=== PATIENT | male | born 1985 | race Caucasian/White ===

== ENCOUNTER 2016-09-19 17:55 | Emergency (ER) | payer OTHER ==
[~2016-09-19] VITALS: Ht 162.6 cm; Wt 96.8 kg
[~2016-09-19 17:55] MED LIST: ACETAMINOP160 MG/51 GT; ALBUTEROL0.63 MG/3 IH; ALL DAY ALL1 MG/1 ML PO; ALLERGY REL1 MG/1 M1 GT; AMOX TR-K400 MG/5 M GT; AUGMENTIN875 MG PO; CALCIUM CA1250 MG/5 GT; CALCIUM CARB GT; CALCIUM500 M3 GT; CATAPRES-TTS 10.1 MG PO; CATAPRES-TTS 11 EACH TD; CENTAMIN240 ML GT; CHILD IBUP100 MG/5 M G-TUBE; CHILDREN'S160 MG/23 GT; CILOSTAZOL100 MG GT; CILOSTAZOL50 MG GT; CIMETIDINE300 MG/5 M GT; CLEOCIN300 MG GT; CLONIDINE1 EACH TD; DIASTAT ACUDIAL10 MG PR; DIAZEPAM2 MG GT; DIAZEPAM2 MG PO; DIAZEPAM5 MG GT; DIAZEPAM5 MG/1 M2 GT; DIAZEPAM5 MG/5 ML GT; DIPHENHIST12.5 MG/5 GT; DULCOLAX10 MG PR; EAR WAX DROPS15 ML BOTH EARS; FAMOTIDINE40 MG/5 ML PO; IBUPROFEN100 MG/5 M GT; IBUPROFEN100 MG/5 M PO; Imodium GT; JEVITY PO; JEVITY1000 M1 PO; KEPPRA100 MG/1 M PO; KETOCONAZOLE60 GM TP; LEVAQUIN750 MG PO; LEVETIRACE100 MG/1 M GT; LEVOFLOXACIN750 MG GT; LISINOPRIL2.5 MG GT; LISINOPRIL5 MG GT; LOPERAMIDE1 MG/5 ML GT; MILK OF MAGN GT; MILK OF MAGNESI10 ML GT; MULTI-DELYN473 M1 GT; MUPIROCIN15 GM TP; NIZATIDINE150 MG/10 GT; NYSTATIN15 GM TP; OXCARBAZEP300 MG/5 M GT; OXCARBAZEP300 MG/5 M PO; PREDNISONE10 MG GT; PROMETHEGAN25 MG PR; PROVENTIL,2.5 MG/3 M IH; Q-TUSSIN GT; RANITIDINE HCL150 MG GT; RANITIDINE15 MG/1 ML GT; ROBITUSSIN100 MG/5 M GT; SENEXON8.8 MG/5 M GT; SILAPAP GT; SODIUM CHLORIDE1 G1 GT; SODIUM CHLORIDE1 GM GT; SODIUM CHLORIDE4 ML IH; TRILEPTAL300 MG/5 M GT; ZESTRIL,PRINIV2.5 MG GT; ZESTRIL5 MG GT
[2016-09-19 20:15] VITALS: BP 114/67
== END 2016-09-19 20:35 | disposition home or self-care (01) ==
LOC: EME 17:55
PROC: 0D20XUZ Change Feeding Device in Upper Intestinal Tract, External Approach (ICD-10-PCS; principal; 2016-09-19)
DX: Z43.1 Encounter for attention to gastrostomy (principal); I10 Essential (primary) hypertension; F79 Unspecified intellectual disabilities; G82.50 Quadriplegia, unspecified; K21.9 Gastro-esophageal reflux disease without esophagitis; R56.9 Unspecified convulsions; I73.00 Raynaud's syndrome without gangrene
CPT/HCPCS: 74000; 99281; 99284

== ENCOUNTER 2016-10-10 09:07 | Inpatient (IN) | payer OTHER ==
[~2016-10-10] VITALS: Ht 149.9 cm; Wt 54.3 kg
[2016-10-10 10:21] LABS: HEMATOCRIT 35.2 % (38.0-50.0); MCH 31.9 PG (29.0-34.0); MCHC 35.2 G/DL (30.0-36.0); MCV 90.5 FL (86-99); MEAN PLAT.VOLUME 9.5 uM^3 (9.0-12.4); PLATELET COUNT 130 K/uL (156-360); RBC DIS.WIDTH-CV 13.7 % (11.8-14.6); RBC DIS.WIDTH-SD 45.2 % (39-53); RED BLOOD COUNT 3.89 M/uL (4.00-5.50); WHITE BLOOD COUNT 6.5 K/uL (4.1-10.2)
[2016-10-10 10:32] LABS: CHLORIDE 97 mEq/L (99-109); POTASSIUM 4.1 mEq/L (3.7-5.4); SODIUM 129 mEq/L (136-147)
[2016-10-10 10:34] LABS: GLUCOSE 93 mg/dL (70-99)
[2016-10-10 10:35] LABS: ANION GAP 9 MEQ/L (2-14)
[2016-10-10 10:38] LABS: GFR ESTIMATE (CALCULATED) > 59 mL/min/
[2016-10-10 10:39] LABS: UREA NITROGEN (BUN) 6 mg/dL (9-23)
[2016-10-10] MEDS ORDERED: CERTA VITE9 MG/15 ML GT (13:31)
[2016-10-10] MEDS ORDERED: CRANBERRY250 MG GT (13:35)
[2016-10-10] MEDS ORDERED: RANITIDINE HCL150 MG GT (13:36)
[2016-10-10 15:36] VITALS: BP 127/86
[2016-10-10 17:30] VITALS: BP 110/68
[2016-10-10 19:29] VITALS: BP 104/58
[2016-10-10 23:51] VITALS: BP 108/55
[2016-10-11 04:00] VITALS: BP 102/53
[2016-10-11 06:38] LABS: POINT-OF-CARE METER ID UU14188625
[2016-10-11 08:01] VITALS: BP 126/62
[2016-10-11 08:02] LABS: HEMATOCRIT 31.9 % (38.0-50.0); MCH 32.5 PG (29.0-34.0); MCHC 34.8 G/DL (30.0-36.0); MCV 93.3 FL (86-99); MEAN PLAT.VOLUME 10.6 uM^3 (9.0-12.4); PLATELET COUNT 143 K/uL (156-360); RBC DIS.WIDTH-CV 14.3 % (11.8-14.6); RBC DIS.WIDTH-SD 47.8 % (39-53); RED BLOOD COUNT 3.42 M/uL (4.00-5.50)
[2016-10-11 08:35] LABS: ANION GAP 6 MEQ/L (2-14); CHLORIDE 100 MEQ/L (99-109); GFR ESTIMATE (CALCULATED) > 59 mL/min/; GLUCOSE 78 mg/dL (70-99); SAMPLE HEMOLYSIS CHECK 0; SAMPLE ICTERIC CHECK 0; SAMPLE LIPEMIA CHECK 0; SODIUM 132 MEQ/L (136-147); UREA NITROGEN (BUN) 4 mg/dL (9-23)
[2016-10-11 12:34] VITALS: BP 138/62
[2016-10-11 15:40] VITALS: BP 115/62
[2016-10-11 19:43] VITALS: BP 121/68
[2016-10-12] VITALS (7 sets, daily range): BP systolic 119–143; BP diastolic 64–71
[2016-10-12 00:42] LABS: POINT-OF-CARE METER ID UU14188625
[2016-10-12 10:20] LABS: ANION GAP 8 MEQ/L (2-14); CHLORIDE 103 MEQ/L (99-109); GFR ESTIMATE (CALCULATED) > 59 mL/min/; GLUCOSE 85 mg/dL (70-99); POTASSIUM 4.1 MEQ/L (3.7-5.4); SAMPLE HEMOLYSIS CHECK 0; SAMPLE ICTERIC CHECK 0; SAMPLE LIPEMIA CHECK 0; SODIUM 134 MEQ/L (136-147); UREA NITROGEN (BUN) 5 mg/dL (9-23)
[2016-10-12 23:43] LABS: POINT-OF-CARE METER ID UU14174225
[2016-10-13] VITALS (7 sets, daily range): BP systolic 96–158; BP diastolic 55–82
[2016-10-13 07:00] LABS: POINT-OF-CARE METER ID UU14188625
[2016-10-13 10:10] LABS: HEMATOCRIT 32.6 % (38.0-50.0); MCH 32.8 PG (29.0-34.0); MCV 93.7 FL (86-99); MEAN PLAT.VOLUME 9.6 uM^3 (9.0-12.4); PLATELET COUNT 139 K/uL (156-360); RBC DIS.WIDTH-CV 14.3 % (11.8-14.6); RBC DIS.WIDTH-SD 48.7 % (39-53); RED BLOOD COUNT 3.48 M/uL (4.00-5.50)
[2016-10-13 10:41] LABS: ANION GAP 7 MEQ/L (2-14); CHLORIDE 104 MEQ/L (99-109); GFR ESTIMATE (CALCULATED) > 59 mL/min/; GLUCOSE 114 mg/dL (70-99); POTASSIUM 3.7 MEQ/L (3.7-5.4); SAMPLE HEMOLYSIS CHECK 0; SAMPLE ICTERIC CHECK 0; SAMPLE LIPEMIA CHECK 0; SODIUM 136 MEQ/L (136-147); UREA NITROGEN (BUN) 5 mg/dL (9-23)
[2016-10-13 12:12] LABS: POINT-OF-CARE METER ID UU14174225
[2016-10-14 00:57] LABS: POINT-OF-CARE METER ID UU14188625
[2016-10-14 03:36] VITALS: BP 106/56
[2016-10-14 08:13] VITALS: BP 118/57
[2016-10-14 11:50] VITALS: BP 96/46
[2016-10-14] MEDS ORDERED: AUGMENTIN600 MG/5 M PO (14:00)
[2016-10-14 16:13] VITALS: BP 121/68
[2016-10-14 18:01] LABS: POINT-OF-CARE METER ID UU14174225
[2016-10-14 19:52] VITALS: BP 109/71
[2016-10-15] VITALS: BP 129/61
[2016-10-15 04:00] VITALS: BP 109/54
[2016-10-15 12:30] VITALS: BP 110/60
[2016-10-15 16:00] VITALS: BP 87/49
[2016-10-15 16:24] VITALS: BP 94/50
[2016-10-15 18:06] LABS: POINT-OF-CARE METER ID UU14188625
[2016-10-15 20:00] VITALS: BP 136/65
[2016-10-16] VITALS (8 sets, daily range): BP systolic 116–145; BP diastolic 60–84
[2016-10-16 03:15] LABS: POINT-OF-CARE METER ID UU14174225
[2016-10-16 05:43] LABS: POINT-OF-CARE METER ID UU14174225
[2016-10-16 16:21] LABS: POINT-OF-CARE METER ID UU14174225
[2016-10-17 03:43] VITALS: BP 170/90
[2016-10-17 06:28] LABS: POINT-OF-CARE METER ID UU14188625
[2016-10-17 09:21] VITALS: BP 163/84
[2016-10-17 14:09] VITALS: BP 144/76
[2016-10-17 16:01] VITALS: BP 165/79
== END 2016-10-17 19:42 | disposition home or self-care (01) | DRG 177 ==
LOC: EME 09:07 → 5SOUTH 12:17 → EDOF 12:17 → 5SOUTH 15:22
PROVIDERS: Emergency Medicine; Internal Medicine; Nurse Practitioner Adult Health
PROC: 0DHA3UZ Insertion of Feeding Device into Jejunum, Percutaneous Approach (ICD-10-PCS; principal; 2016-10-15)
DX: J69.0 Pneumonitis due to inhalation of food and vomit (principal); G82.50 Quadriplegia, unspecified; F72 Severe intellectual disabilities; G40.909 Epilepsy, unspecified, not intractable, without status epilepticus; Z68.1 Body mass index [BMI] 19.9 or less, adult; I67.5 Moyamoya disease; R13.10 Dysphagia, unspecified; Z93.1 Gastrostomy status; D69.6 Thrombocytopenia, unspecified; E87.1 Hypo-osmolality and hyponatremia; Z66 Do not resuscitate; T85.598A Other mechanical complication of other gastrointestinal prosthetic devices, implants and grafts, initial encounter; M24.50 Contracture, unspecified joint; Z93.4 Other artificial openings of gastrointestinal tract status; J98.11 Atelectasis; F79 Unspecified intellectual disabilities
CPT/HCPCS: 71010; 71020; 71250; 80048; 80202; 82948; 85027; 87040; 87070; 87205; 94640; 94640 76; 94799; 99202; 99281; 99285; C1769; J1650; J1953; J2543; J3370; J7030; J7042; J7050

== ENCOUNTER → 2016-10-24 | Outpatient (CLI) | payer OTHER ==
[~2016-10-24] MED LIST changes: +AUGMENTIN600 MG/5 M PO; +CERTA VITE9 MG/15 ML GT; +CRANBERRY250 MG GT
== END | disposition home or self-care (01) ==
LOC: RAD 13:29 → EDSTATUS 14:30 → RAD 14:30
PROC: 0DH87UZ Insertion of Feeding Device into Small Intestine, Via Natural or Artificial Opening (ICD-10-PCS; principal; 2016-10-24)
DX: K94.20 Gastrostomy complication, unspecified (principal); Z88.1 Allergy status to other antibiotic agents
CPT/HCPCS: C1766; C1769

== ENCOUNTER 2016-10-28 13:25 | Emergency (ER) | payer OTHER ==
[~2016-10-28] VITALS: Ht 162.6 cm; Wt 43.1 kg
[2016-10-28 17:00] VITALS: BP 90/61
== END 2016-10-28 17:01 | disposition home or self-care (01) ==
LOC: EME 13:25
DX: Z43.4 Encounter for attention to other artificial openings of digestive tract (principal); I10 Essential (primary) hypertension; K21.9 Gastro-esophageal reflux disease without esophagitis; R56.9 Unspecified convulsions; I67.5 Moyamoya disease; G82.50 Quadriplegia, unspecified; M41.9 Scoliosis, unspecified
CPT/HCPCS: 99281; 99284

== ENCOUNTER 2016-12-09 06:28 | Inpatient (IN) | payer OTHER ==
[~2016-12-09] VITALS: Ht 157.5 cm; Wt 47.6 kg
[2016-12-09 07:29] LABS: EOSINOPHIL (%) 0.3 % (0-5); HEMATOCRIT 39.7 % (38.0-50.0); IMMATURE GRANULOCYTE (%) 0.3 % (0.0-0.7); INSTRUMENT ABS NEUTROPHIL CT 10.7 K/uL; LYMPHOCYTE COUNT 0.3 K/uL (1.0-2.8); MCH 32.1 PG (29.0-34.0); MCHC 35.8 G/DL (30.0-36.0); MCV 89.8 FL (86-99); MEAN PLAT.VOLUME 9.9 uM^3 (9.0-12.4); MONOCYTE (%) 6.2 % (3-12); MONOCYTE COUNT 0.7 K/uL (0-0.8); NEUTROPHIL COUNT 10.7 K/uL (1.8-6.4); PLATELET COUNT 156 K/uL (156-360); RBC DIS.WIDTH-CV 13.2 % (11.8-14.6); RBC DIS.WIDTH-SD 43.5 % (39-53); RED BLOOD COUNT 4.42 M/uL (4.00-5.50); WHITE BLOOD COUNT 11.9 K/uL (4.1-10.2)
[2016-12-09 07:52] LABS: CHLORIDE 97 mEq/L (99-109); POTASSIUM 4.6 mEq/L (3.7-5.4); SODIUM 129 mEq/L (136-147)
[2016-12-09 07:54] LABS: GLUCOSE 94 mg/dL (70-99)
[2016-12-09 07:55] LABS: ANION GAP 10 MEQ/L (2-14)
[2016-12-09 07:58] LABS: GFR ESTIMATE (CALCULATED) > 59 mL/min/
[2016-12-09 07:59] LABS: UREA NITROGEN (BUN) 6 mg/dL (9-23)
[2016-12-09] MEDS ORDERED: NYAMYC60 GM TP (12:36)
[2016-12-09 15:16] VITALS: BP 94/52
[2016-12-09 23:32] VITALS: BP 91/49
[2016-12-10 06:19] LABS: EOSINOPHIL (%) 1.1 % (0-5); EOSINOPHIL COUNT 0.1 K/uL (0-0.3); HEMATOCRIT 32.2 % (38.0-50.0); IMMATURE GRANULOCYTE (%) 0.3 % (0.0-0.7); INSTRUMENT ABS NEUTROPHIL CT 4.6 K/uL; LYMPHOCYTE COUNT 1.1 K/uL (1.0-2.8); MCH 31.5 PG (29.0-34.0); MCHC 34.2 G/DL (30.0-36.0); MCV 92.3 FL (86-99); MEAN PLAT.VOLUME 10.5 uM^3 (9.0-12.4); MONOCYTE (%) 7.5 % (3-12); MONOCYTE COUNT 0.5 K/uL (0-0.8); NEUTROPHIL COUNT 4.6 K/uL (1.8-6.4); PLATELET COUNT 147 K/uL (156-360); RBC DIS.WIDTH-CV 13.8 % (11.8-14.6); RBC DIS.WIDTH-SD 45.9 % (39-53); WHITE BLOOD COUNT 6.3 K/uL (4.1-10.2)
[2016-12-10 06:24] LABS: ANION GAP 7 MEQ/L (2-14); CHLORIDE 102 MEQ/L (99-109); GFR ESTIMATE (CALCULATED) > 59 mL/min/; GLUCOSE 83 mg/dL (70-99); POTASSIUM 4.1 MEQ/L (3.7-5.4); SAMPLE HEMOLYSIS CHECK 0; SAMPLE ICTERIC CHECK 0; SAMPLE LIPEMIA CHECK 0; SODIUM 132 MEQ/L (136-147); UREA NITROGEN (BUN) 4 mg/dL (9-23)
[2016-12-10 06:27] LABS: RED BLOOD COUNT 3.49 M/uL (4.00-5.50)
[2016-12-10 07:48] VITALS: BP 116/58
[2016-12-10 08:11] LABS: INTERNAL CONTROL VALID? YES
[2016-12-10 11:23] LABS: METH RESISTANT S AUREUS PCR POSITIVE (NEGATIVE)
[2016-12-10 11:24] LABS: PROBE CHECK PASS
[2016-12-10 15:04] VITALS: BP 118/77
[2016-12-10 23:29] VITALS: BP 100/51
[2016-12-11 06:20] LABS: HEMATOCRIT 32.3 % (38.0-50.0); MCH 32.9 PG (29.0-34.0); MCHC 35.3 G/DL (30.0-36.0); MCV 93.4 FL (86-99); MEAN PLAT.VOLUME 10.3 uM^3 (9.0-12.4); PLATELET COUNT 157 K/uL (156-360); RBC DIS.WIDTH-CV 13.9 % (11.8-14.6); RBC DIS.WIDTH-SD 46.9 % (39-53); RED BLOOD COUNT 3.46 M/uL (4.00-5.50); WHITE BLOOD COUNT 6.1 K/uL (4.1-10.2)
[2016-12-11 06:36] LABS: ANION GAP 10 MEQ/L (2-14); CHLORIDE 106 MEQ/L (99-109); GFR ESTIMATE (CALCULATED) > 59 mL/min/; GLUCOSE 66 mg/dL (70-99); POTASSIUM 3.8 MEQ/L (3.7-5.4); SAMPLE HEMOLYSIS CHECK 0; SAMPLE ICTERIC CHECK 0; SAMPLE LIPEMIA CHECK 0; SODIUM 138 MEQ/L (136-147); UREA NITROGEN (BUN) 6 mg/dL (9-23)
[2016-12-11 08:03] VITALS: BP 136/70
[2016-12-11 15:51] VITALS: BP 134/68
[2016-12-11 23:13] VITALS: BP 133/71
[2016-12-12 07:16] LABS: ANION GAP 7 MEQ/L (2-14); CHLORIDE 106 MEQ/L (99-109); GFR ESTIMATE (CALCULATED) > 59 mL/min/; POTASSIUM 4.2 MEQ/L (3.7-5.4); SAMPLE HEMOLYSIS CHECK 0; SAMPLE ICTERIC CHECK 0; SAMPLE LIPEMIA CHECK 0; SODIUM 139 MEQ/L (136-147); UREA NITROGEN (BUN) 6 mg/dL (9-23)
[2016-12-12 07:17] LABS: GLUCOSE 89 mg/dL (70-99)
[2016-12-12 07:44] LABS: MCH 31.8 PG (29.0-34.0); MCHC 33.8 G/DL (30.0-36.0); MCV 93.9 FL (86-99); MEAN PLAT.VOLUME 10.3 uM^3 (9.0-12.4); PLATELET COUNT 155 K/uL (156-360); RBC DIS.WIDTH-CV 13.6 % (11.8-14.6); RBC DIS.WIDTH-SD 46.3 % (39-53); RED BLOOD COUNT 3.62 M/uL (4.00-5.50); WHITE BLOOD COUNT 4.6 K/uL (4.1-10.2)
[2016-12-12 08:30] VITALS: BP 110/64
[2016-12-12 15:14] VITALS: BP 108/66
[2016-12-12 23:26] VITALS: BP 116/71
[2016-12-13 08:27] VITALS: BP 122/70
[2016-12-13 23:40] VITALS: BP 132/77
[2016-12-14 06:36] LABS: ANION GAP 8 MEQ/L (2-14); CHLORIDE 105 MEQ/L (99-109); GFR ESTIMATE (CALCULATED) > 59 mL/min/; GLUCOSE 91 mg/dL (70-99); POTASSIUM 4.1 MEQ/L (3.7-5.4); SAMPLE HEMOLYSIS CHECK 0; SAMPLE ICTERIC CHECK 0; SAMPLE LIPEMIA CHECK 0; SODIUM 141 MEQ/L (136-147); UREA NITROGEN (BUN) 5 mg/dL (9-23)
[2016-12-14 15:23] VITALS: BP 134/72
[2016-12-14 20:58] LABS: POINT-OF-CARE METER ID UU13113717
[2016-12-15 00:32] VITALS: BP 126/63
[2016-12-15 02:53] LABS: POINT-OF-CARE METER ID UU14188625
[2016-12-15 08:04] VITALS: BP 121/66
[2016-12-15 12:28] LABS: POINT-OF-CARE METER ID UU14174225
[2016-12-15 15:34] VITALS: BP 113/70
[2016-12-15 17:04] LABS: POINT-OF-CARE METER ID UU14174225
[2016-12-15 23:37] VITALS: BP 147/83
[2016-12-16 04:04] LABS: POINT-OF-CARE METER ID UU13113717
[2016-12-16 06:17] LABS: ANION GAP 8 MEQ/L (2-14); CHLORIDE 105 MEQ/L (99-109); GFR ESTIMATE (CALCULATED) > 59 mL/min/; GLUCOSE 92 mg/dL (70-99); POTASSIUM 3.9 MEQ/L (3.7-5.4); SAMPLE HEMOLYSIS CHECK 0; SAMPLE ICTERIC CHECK 0; SAMPLE LIPEMIA CHECK 0; SODIUM 139 MEQ/L (136-147); UREA NITROGEN (BUN) 5 mg/dL (9-23)
[2016-12-16 06:31] LABS: EOSINOPHIL (%) 5.4 % (0-5); EOSINOPHIL COUNT 0.2 K/uL (0-0.3); HEMATOCRIT 37.2 % (38.0-50.0); IMMATURE GRANULOCYTE (%) 0.3 % (0.0-0.7); INSTRUMENT ABS NEUTROPHIL CT 1.2 K/uL; LYMPHOCYTE COUNT 1.4 K/uL (1.0-2.8); MCH 31.6 PG (29.0-34.0); MCHC 33.6 G/DL (30.0-36.0); MCV 93.9 FL (86-99); MEAN PLAT.VOLUME 10.1 uM^3 (9.0-12.4); MONOCYTE (%) 15.2 % (3-12); MONOCYTE COUNT 0.5 K/uL (0-0.8); NEUTROPHIL COUNT 1.2 K/uL (1.8-6.4); RBC DIS.WIDTH-CV 12.9 % (11.8-14.6); RED BLOOD COUNT 3.96 M/uL (4.00-5.50); WHITE BLOOD COUNT 3.4 K/uL (4.1-10.2)
[2016-12-16 06:36] LABS: PLATELET COUNT 220 K/uL (156-360)
[2016-12-16 12:27] VITALS: BP 136/72
[2016-12-16 15:52] VITALS: BP 132/77
[2016-12-17 00:11] VITALS: BP 128/70
[2016-12-17 07:26] VITALS: BP 122/64
[2016-12-17] MEDS ORDERED: LEVETIRACE100 MG/1 M GT (10:24)
[2016-12-17] MEDS ORDERED: CLOTRIM ANTIFUN15 GM TP (10:49)
[2016-12-17 15:55] VITALS: BP 104/70
== END 2016-12-17 17:29 | disposition home or self-care (01) | DRG 177 ==
LOC: EME 06:28 → EDOF 11:19 → 5SOUTH 11:19 → ENRESERV 11:20 → CANRESERV 11:20 → ENRESERV 11:21 → 5SOUTH 15:10
PROVIDERS: Emergency Medicine; Internal Medicine; Nurse Practitioner Adult Health
PROC: 0D2DXUZ Change Feeding Device in Lower Intestinal Tract, External Approach (ICD-10-PCS; principal; 2016-12-16)
DX: J69.0 Pneumonitis due to inhalation of food and vomit (principal); F79 Unspecified intellectual disabilities; I67.5 Moyamoya disease; M41.9 Scoliosis, unspecified; E87.1 Hypo-osmolality and hyponatremia; K21.9 Gastro-esophageal reflux disease without esophagitis; K94.23 Gastrostomy malfunction; R13.10 Dysphagia, unspecified; G40.909 Epilepsy, unspecified, not intractable, without status epilepticus; G82.50 Quadriplegia, unspecified; Z66 Do not resuscitate; Y83.3 Surgical operation with formation of external stoma as the cause of abnormal reaction of the patient, or of later complication, without mention of misadventure at the time of the procedure; D64.9 Anemia, unspecified; I73.00 Raynaud's syndrome without gangrene; R09.02 Hypoxemia
CPT/HCPCS: 71010; 71275; 74000; 80048; 80202; 82948; 83605; 85025; 85027; 87040; 87070; 87075; 87076; 87106; 87205; 87449; 87641; 94640; 94640 76; 94760; 94799; 99202; 99281; 99285; C1769; J1650; J1953; J1956; J2543; J3370; J7030; J7042; J7050; S0028

== ENCOUNTER 2016-12-30 10:40 | Emergency (ER) | payer OTHER ==
[~2016-12-30] VITALS: Ht 154.9 cm; Wt 38.5 kg
[~2016-12-30 10:40] MED LIST changes: +CLOTRIM ANTIFUN15 GM TP; +NYAMYC60 GM TP
[2016-12-30 14:33] VITALS: BP 132/77
== END 2016-12-30 14:33 | disposition home or self-care (01) ==
LOC: EME 10:40
DX: K94.23 Gastrostomy malfunction (principal); Y83.3 Surgical operation with formation of external stoma as the cause of abnormal reaction of the patient, or of later complication, without mention of misadventure at the time of the procedure; F79 Unspecified intellectual disabilities; G82.50 Quadriplegia, unspecified; G40.909 Epilepsy, unspecified, not intractable, without status epilepticus; I73.00 Raynaud's syndrome without gangrene; I67.5 Moyamoya disease
CPT/HCPCS: 99281; 99284

== ENCOUNTER 2017-01-23 10:48 | Inpatient (IN) | payer OTHER ==
[~2017-01-23] VITALS: Ht 147.3 cm; Wt 46.0 kg
[2017-01-23 12:35] LABS: ADD MIUA? YES; BILIRUBIN NEGATIVE; BLOOD MODERATE; COLOR YELLOW ((YELLOW)); GLUCOSE (STRIP) NEGATIVE; KETONES NEGATIVE; LEUKOCYTES LARGE; NITRITE POSITIVE; PROTEIN (STRIP) NEGATIVE; SPECIFIC GRAVITY 1.015 (1.000-1.030); UROBILINOGEN 0.2 MG/DL (0.2-1.0)
[2017-01-23 12:54] LABS: BACTERIA 3+ /HPF; CASTS NONE SEEN /LPF; CRYSTALS NONE SEEN; EPITHELIAL CELLS RARE /HPF; MUCUS NONE SEEN /LPF; UCUL ADDED? YES; WHITE BLOOD CELLS TNTC /HPF (0-5)
[2017-01-23 13:16] LABS: EOSINOPHIL (%) 0 % (0-5); IMMATURE GRANULOCYTE (%) 0.4 % (0.0-0.7); INSTRUMENT ABS NEUTROPHIL CT 9.1 K/uL; LYMPHOCYTE COUNT 0.8 K/uL (1.0-2.8); MCH 31.6 PG (29.0-34.0); MCHC 35.6 G/DL (30.0-36.0); MCV 88.6 FL (86-99); MEAN PLAT.VOLUME 9.3 uM^3 (9.0-12.4); MONOCYTE (%) 9.6 % (3-12); MONOCYTE COUNT 1.1 K/uL (0-0.8); NEUTROPHIL (%) 82.7 % (45-76); NEUTROPHIL COUNT 9.1 K/uL (1.8-6.4); PLATELET COUNT 158 K/uL (156-360); RBC DIS.WIDTH-CV 13.2 % (11.8-14.6); RBC DIS.WIDTH-SD 43.3 % (39-53); RED BLOOD COUNT 3.61 M/uL (4.00-5.50)
[2017-01-23 13:25] LABS: CHLORIDE 91 mEq/L (99-109); SODIUM 121 mEq/L (136-147)
[2017-01-23 13:27] LABS: GLUCOSE 95 mg/dL (70-99)
[2017-01-23 13:29] LABS: ANION GAP 8 MEQ/L (2-14); TOTAL BILIRUBIN 0.6 mg/dL (0.0-1.0)
[2017-01-23 13:31] LABS: ALKALINE PHOSPHATASE 192 IU/L (3-129); GFR ESTIMATE (CALCULATED) > 59 mL/min/
[2017-01-23 13:32] LABS: UREA NITROGEN (BUN) 5 mg/dL (9-23)
[2017-01-23 13:37] LABS: TROP-I INTERPRETATION NEGATIVE; TROPONIN-I 0.03 ng/mL (0.0-0.30)
[2017-01-23] MEDS ORDERED: KEPPRA100 MG/1 M GT (13:56)
[2017-01-23 19:16] VITALS: BP 131/62
[2017-01-23 23:45] VITALS: BP 122/58
[2017-01-24 03:37] VITALS: BP 126/61
[2017-01-24 07:15] LABS: ANION GAP 8 MEQ/L (2-14); CHLORIDE 101 MEQ/L (99-109); GFR ESTIMATE (CALCULATED) > 59 mL/min/; GLUCOSE 122 mg/dL (70-99); POTASSIUM 3.9 MEQ/L (3.7-5.4); SAMPLE HEMOLYSIS CHECK 0; SAMPLE ICTERIC CHECK 0; SAMPLE LIPEMIA CHECK 0; UREA NITROGEN (BUN) 8 mg/dL (9-23)
[2017-01-24 07:19] LABS: SODIUM 131 MEQ/L (136-147)
[2017-01-24 08:31] LABS: HEMATOCRIT 32.2 % (38.0-50.0); MCH 31.3 PG (29.0-34.0); MCHC 33.9 G/DL (30.0-36.0); MCV 92.5 FL (86-99); MEAN PLAT.VOLUME 9.9 uM^3 (9.0-12.4); PLATELET COUNT 147 K/uL (156-360); RBC DIS.WIDTH-CV 14.3 % (11.8-14.6); RBC DIS.WIDTH-SD 48.4 % (39-53); RED BLOOD COUNT 3.48 M/uL (4.00-5.50); WHITE BLOOD COUNT 12.3 K/uL (4.1-10.2)
[2017-01-24 08:47] VITALS: BP 132/70
[2017-01-24 11:26] VITALS: BP 149/64
[2017-01-24 16:19] VITALS: BP 140/79
[2017-01-24 19:22] VITALS: BP 133/62
[2017-01-24 23:57] VITALS: BP 119/56
[2017-01-25 05:05] LABS: HEMATOCRIT 31.5 % (38.0-50.0); MCH 31.4 PG (29.0-34.0); MCV 92.4 FL (86-99); RBC DIS.WIDTH-CV 13.9 % (11.8-14.6); RBC DIS.WIDTH-SD 47.4 % (39-53); RED BLOOD COUNT 3.41 M/uL (4.00-5.50); WHITE BLOOD COUNT 3.3 K/uL (4.1-10.2)
[2017-01-25 05:08] LABS: POTASSIUM 3.7 mEq/L (3.7-5.4); SODIUM 132 mEq/L (136-147)
[2017-01-25 05:10] LABS: GLUCOSE 153 mg/dL (70-99)
[2017-01-25 05:11] LABS: ANION GAP 8 MEQ/L (2-14)
[2017-01-25 05:14] LABS: GFR ESTIMATE (CALCULATED) > 59 mL/min/
[2017-01-25 05:15] LABS: UREA NITROGEN (BUN) 8 mg/dL (9-23)
[2017-01-25 05:19] LABS: CHLORIDE 102 mEq/L (99-109)
[2017-01-25 06:04] LABS: MEAN PLAT.VOLUME 9.4 uM^3 (9.0-12.4); PLAT.SUFFICIENCY DECREASED; PLATELET COUNT 92 K/uL (156-360)
[2017-01-25 11:33] VITALS: BP 124/76
[2017-01-25 16:08] VITALS: BP 122/63
[2017-01-25 19:52] VITALS: BP 108/53
[2017-01-26 00:47] VITALS: BP 109/53
[2017-01-26 03:40] VITALS: BP 126/58
[2017-01-26 06:49] VITALS: BP 161/59
[2017-01-26 07:07] LABS: ANION GAP 9 MEQ/L (2-14); CHLORIDE 99 MEQ/L (99-109); POTASSIUM 3.9 MEQ/L (3.7-5.4); SAMPLE HEMOLYSIS CHECK 0; SAMPLE ICTERIC CHECK 0; SAMPLE LIPEMIA CHECK 0; SODIUM 132 MEQ/L (136-147)
[2017-01-26 07:12] LABS: GFR ESTIMATE (CALCULATED) > 59 mL/min/; GLUCOSE 130 mg/dL (70-99); UREA NITROGEN (BUN) 11 mg/dL (9-23)
[2017-01-26 07:13] LABS: HEMATOCRIT 31.1 % (38.0-50.0); MCH 31.2 PG (29.0-34.0); MCHC 34.4 G/DL (30.0-36.0); MCV 90.7 FL (86-99); MEAN PLAT.VOLUME 10.1 uM^3 (9.0-12.4); PLATELET COUNT 105 K/uL (156-360); RBC DIS.WIDTH-SD 46.5 % (39-53); RED BLOOD COUNT 3.43 M/uL (4.00-5.50)
[2017-01-26 07:14] LABS: WHITE BLOOD COUNT 1.2 K/uL (4.1-10.2)
[2017-01-26 08:51] VITALS: BP 125/56
[2017-01-26 16:06] VITALS: BP 125/54
[2017-01-26 21:08] VITALS: BP 117/59
[2017-01-27] VITALS (7 sets, daily range): BP systolic 107–135; BP diastolic 54–85
[2017-01-27 06:08] LABS: HEMATOCRIT 31.7 % (38.0-50.0); MCH 31.2 PG (29.0-34.0); MCHC 33.8 G/DL (30.0-36.0); MCV 92.4 FL (86-99); MEAN PLAT.VOLUME 9.5 uM^3 (9.0-12.4); PLATELET COUNT 114 K/uL (156-360); RBC DIS.WIDTH-CV 14.1 % (11.8-14.6); RBC DIS.WIDTH-SD 48.2 % (39-53); RED BLOOD COUNT 3.43 M/uL (4.00-5.50); WHITE BLOOD COUNT 2.7 K/uL (4.1-10.2)
[2017-01-27 06:32] LABS: ANION GAP 10 MEQ/L (2-14); CHLORIDE 101 MEQ/L (99-109); GFR ESTIMATE (CALCULATED) > 59 mL/min/; GLUCOSE 128 mg/dL (70-99); POTASSIUM 3.8 MEQ/L (3.7-5.4); SAMPLE HEMOLYSIS CHECK 0; SAMPLE ICTERIC CHECK 0; SAMPLE LIPEMIA CHECK 0; SODIUM 134 MEQ/L (136-147); UREA NITROGEN (BUN) 8 mg/dL (9-23)
[2017-01-27 06:45] LABS: ABS NEUTROPHIL COUNT 1.4; ATYPICAL LYMPHOCYTE 0.9 %; BAND NEUTROPHILS 16.1 % (0-8.0); EOSINOPHIL ABS CT 0; EOSINOPHILS 0.9 % (0-5.0); INSTRUMENT ABS NEUTROPHIL CT 1.2 K/uL; LYMPHOCYTES 35.7 % (15.0-45.0); PLAT.SUFFICIENCY DECREASED; SEG.NEUTROPHILS 34.8 % (46.0-76.0); SMUDGE CELLS 13.4
[2017-01-28 04:52] VITALS: BP 133/70
[2017-01-28 07:42] VITALS: BP 122/76
[2017-01-28 11:24] VITALS: BP 136/75
[2017-01-28 15:32] VITALS: BP 114/73
[2017-01-29] VITALS: BP 125/59
[2017-01-29 08:35] VITALS: BP 120/64
[2017-01-29 16:44] VITALS: BP 124/48
[2017-01-29 23:29] VITALS: BP 109/63
[2017-01-30 08:00] VITALS: BP 99/54
[2017-01-30 10:02] LABS: HEMATOCRIT 30.6 % (38.0-50.0); MCH 30.8 PG (29.0-34.0); MCV 93.3 FL (86-99); MEAN PLAT.VOLUME 9.1 uM^3 (9.0-12.4); RBC DIS.WIDTH-SD 47.8 % (39-53); RED BLOOD COUNT 3.28 M/uL (4.00-5.50); WHITE BLOOD COUNT 3.1 K/uL (4.1-10.2)
[2017-01-30 10:12] LABS: PLATELET COUNT 170 K/uL (156-360)
[2017-01-30 10:26] LABS: ANION GAP 8 MEQ/L (2-14); CHLORIDE 104 MEQ/L (99-109); GFR ESTIMATE (CALCULATED) > 59 mL/min/; GLUCOSE 118 mg/dL (70-99); POTASSIUM 4.1 MEQ/L (3.7-5.4); SAMPLE HEMOLYSIS CHECK 0; SAMPLE ICTERIC CHECK 0; SAMPLE LIPEMIA CHECK 0; SODIUM 138 MEQ/L (136-147); UREA NITROGEN (BUN) 10 mg/dL (9-23)
[2017-01-30 16:05] VITALS: BP 112/58
== END 2017-01-30 18:19 | disposition home or self-care (01) | DRG 640 ==
LOC: EME 10:48 → 5SOUTH 14:42 → EDOF 14:42 → ENRESERV 14:43 → 5SOUTH 16:33
PROVIDERS: Emergency Medicine; Internal Medicine; Nurse Practitioner Adult Health
PROC: 0D2DXUZ Change Feeding Device in Lower Intestinal Tract, External Approach (ICD-10-PCS; principal; 2017-01-29)
DX: E87.1 Hypo-osmolality and hyponatremia (principal); G82.50 Quadriplegia, unspecified; A41.9 Sepsis, unspecified organism; J69.0 Pneumonitis due to inhalation of food and vomit; Z43.1 Encounter for attention to gastrostomy; N39.0 Urinary tract infection, site not specified; F72 Severe intellectual disabilities; I67.5 Moyamoya disease; G40.909 Epilepsy, unspecified, not intractable, without status epilepticus; R13.10 Dysphagia, unspecified; D63.8 Anemia in other chronic diseases classified elsewhere; E66.9 Obesity, unspecified; B96.20 Unspecified Escherichia coli [E. coli] as the cause of diseases classified elsewhere; Z88.1 Allergy status to other antibiotic agents; Z87.440 Personal history of urinary (tract) infections; Z87.01 Personal history of pneumonia (recurrent); I10 Essential (primary) hypertension; I73.00 Raynaud's syndrome without gangrene; K21.9 Gastro-esophageal reflux disease without esophagitis; Z51.5 Encounter for palliative care; Z66 Do not resuscitate; E86.0 Dehydration; Z68.21 Body mass index [BMI] 21.0-21.9, adult
CPT/HCPCS: 71010; 74000; 80048; 80053; 81003; 83605; 84295; 84484; 85025; 85027; 87040; 87077; 87086; 87186; 94640; 94640 76; 94668; 94760; 99202; 99281; 99284; C1766; J1650; J1940; J1956; J2543; J3370; J7030; J7050

== ENCOUNTER 2017-02-15 13:07 | Observation (INO) | payer OTHER ==
[~2017-02-15] VITALS: Ht 157.5 cm; Wt 40.6 kg
[~2017-02-15 13:07] MED LIST changes: +KEPPRA100 MG/1 M GT
[2017-02-15 14:14] LABS: HEMATOCRIT 37.6 % (38.0-50.0); MCH 30.5 PG (29.0-34.0); MCHC 33.8 G/DL (30.0-36.0); MCV 90.4 FL (86-99); RBC DIS.WIDTH-CV 14.3 % (11.8-14.6); RBC DIS.WIDTH-SD 47.1 % (39-53)
[2017-02-15 14:21] LABS: CHLORIDE 98 mEq/L (99-109); POTASSIUM 4.2 mEq/L (3.7-5.4); SODIUM 129 mEq/L (136-147)
[2017-02-15 14:23] LABS: GLUCOSE 94 mg/dL (70-99)
[2017-02-15 14:24] LABS: ANION GAP 8 MEQ/L (2-14)
[2017-02-15 14:25] LABS: TOTAL BILIRUBIN 0.6 mg/dL (0.0-1.0)
[2017-02-15 14:26] LABS: ALKALINE PHOSPHATASE 206 IU/L (3-129)
[2017-02-15 14:27] LABS: GFR ESTIMATE (CALCULATED) > 59 mL/min/
[2017-02-15 14:28] LABS: UREA NITROGEN (BUN) 6 mg/dL (9-23)
[2017-02-15 14:50] LABS: MEAN PLAT.VOLUME 10.3 uM^3 (9.0-12.4); PLAT.SUFFICIENCY ADEQUATE; PLATELET COUNT 250 K/uL (156-360); RED BLOOD COUNT 4.16 M/uL (4.00-5.50)
[2017-02-15] MEDS ORDERED: JEVITY CAL PO (15:13)
[2017-02-15] MEDS ORDERED: ROBITUSSIN100 MG/5 M PO (15:16)
[2017-02-15] MEDS ORDERED: DEBROX15 ML BOTH EARS (15:19)
[2017-02-15 23:38] VITALS: BP 112/56
[2017-02-16 03:59] VITALS: BP 108/53
[2017-02-16 06:43] LABS: HEMATOCRIT 33.9 % (38.0-50.0); MCH 31.5 PG (29.0-34.0); MCHC 33.6 G/DL (30.0-36.0); MCV 93.6 FL (86-99); MEAN PLAT.VOLUME 10.5 uM^3 (9.0-12.4); PLATELET COUNT 219 K/uL (156-360); RBC DIS.WIDTH-CV 14.6 % (11.8-14.6); RBC DIS.WIDTH-SD 50.8 % (39-53); RED BLOOD COUNT 3.62 M/uL (4.00-5.50); WHITE BLOOD COUNT 4.4 K/uL (4.1-10.2)
[2017-02-16 07:09] LABS: ANION GAP 7 MEQ/L (2-14); CHLORIDE 107 MEQ/L (99-109); GFR ESTIMATE (CALCULATED) > 59 mL/min/; GLUCOSE 115 mg/dL (70-99); POTASSIUM 4.8 MEQ/L (3.7-5.4); SAMPLE HEMOLYSIS CHECK 0; SAMPLE ICTERIC CHECK 0; SAMPLE LIPEMIA CHECK 0; UREA NITROGEN (BUN) 10 mg/dL (9-23)
[2017-02-16 07:11] LABS: SODIUM 137 MEQ/L (136-147)
[2017-02-16 07:24] VITALS: BP 116/54
[2017-02-16 11:38] VITALS: BP 129/59
== END 2017-02-16 16:16 | disposition home or self-care (01) ==
LOC: EME 13:07 → 5EAST 15:20 → EDOF 15:20 → 5EAST 15:20 → ENRESERV 15:23 → 5EAST 16:50
PROVIDERS: Internal Medicine; Nurse Practitioner Family
DX: I67.5 Moyamoya disease (principal); E87.1 Hypo-osmolality and hyponatremia; F79 Unspecified intellectual disabilities; D64.9 Anemia, unspecified; Z93.4 Other artificial openings of gastrointestinal tract status; G40.909 Epilepsy, unspecified, not intractable, without status epilepticus; G82.50 Quadriplegia, unspecified; K21.9 Gastro-esophageal reflux disease without esophagitis; R13.10 Dysphagia, unspecified; I10 Essential (primary) hypertension; G93.89 Other specified disorders of brain; Z87.01 Personal history of pneumonia (recurrent); Z87.440 Personal history of urinary (tract) infections; Z88.2 Allergy status to sulfonamides; Z88.1 Allergy status to other antibiotic agents; Z88.8 Allergy status to other drugs, medicaments and biological substances
CPT/HCPCS: 70450; 71010; 80048; 80053; 83605; 85027; 87040; 99281; 99285; G0378; J0456; J0692; J1650; J2405; J3370; J7030; J7050; S0028

== ENCOUNTER 2017-02-18 07:01 | Emergency (ER) | payer OTHER ==
[~2017-02-18] VITALS: Ht 162.6 cm; Wt 70.0 kg
[~2017-02-18 07:01] MED LIST changes: +DEBROX15 ML BOTH EARS; +JEVITY CAL PO; +ROBITUSSIN100 MG/5 M PO
[2017-02-18 07:51] LABS: MCH 29.9 PG (29.0-34.0); MCHC 32.6 G/DL (30.0-36.0); MCV 91.7 FL (86-99); MEAN PLAT.VOLUME 9.9 uM^3 (9.0-12.4); PLATELET COUNT 263 K/uL (156-360); RBC DIS.WIDTH-CV 14.3 % (11.8-14.6); RBC DIS.WIDTH-SD 48.4 % (39-53); RED BLOOD COUNT 4.58 M/uL (4.00-5.50); WHITE BLOOD COUNT 4.8 K/uL (4.1-10.2)
[2017-02-18 08:05] LABS: ANION GAP 11 MEQ/L (2-14); CHLORIDE 103 MEQ/L (99-109); GFR ESTIMATE (CALCULATED) > 59 mL/min/; POTASSIUM 4.6 MEQ/L (3.7-5.4); SAMPLE HEMOLYSIS CHECK 0; SAMPLE ICTERIC CHECK 0; SAMPLE LIPEMIA CHECK 0; SODIUM 138 MEQ/L (136-147); UREA NITROGEN (BUN) 9 mg/dL (9-23)
[2017-02-18 08:06] LABS: GLUCOSE 78 mg/dL (70-99)
[2017-02-18 08:14] LABS: BILIRUBIN NEGATIVE; BLOOD NEGATIVE; COLOR YELLOW ((YELLOW)); GLUCOSE (STRIP) NEGATIVE; KETONES NEGATIVE; LEUKOCYTES NEGATIVE; NITRITE NEGATIVE; PROTEIN (STRIP) NEGATIVE; SPECIFIC GRAVITY 1.013 (1.000-1.030); UROBILINOGEN 0.2 MG/DL (0.2-1.0)
[2017-02-18 08:19] LABS: ADD MIUA? NO
[2017-02-18] MEDS ORDERED: PREDNISONE1 MG/ML PO (08:34)
[2017-02-18] MEDS ORDERED: PROVENTIL,2.5 MG/3 M IH (09:26)
[2017-02-18 10:00] VITALS: BP 111/63
== END 2017-02-18 10:36 | disposition home or self-care (01) ==
LOC: EME 07:01
PROVIDERS: Nurse Practitioner Family
DX: J06.9 Acute upper respiratory infection, unspecified (principal); F79 Unspecified intellectual disabilities; I10 Essential (primary) hypertension
CPT/HCPCS: 71010; 80048; 81003; 85027; 94640; 99281; 99285; J7512

== ENCOUNTER 2017-04-27 09:13 | Observation (INO) | payer OTHER ==
[~2017-04-27] VITALS: Ht 152.4 cm; Wt 52.2 kg
[~2017-04-27 09:13] MED LIST changes: +PREDNISONE1 MG/ML PO
[2017-04-27 10:34] LABS: EOSINOPHIL (%) 2.1 % (0-5); EOSINOPHIL COUNT 0.1 K/uL (0-0.3); HEMATOCRIT 35.6 % (38.0-50.0); IMMATURE GRANULOCYTE (%) 0.6 % (0.0-0.7); INSTRUMENT ABS NEUTROPHIL CT 3.2 K/uL; LYMPHOCYTE COUNT 1.3 K/uL (1.0-2.8); MCH 31.2 PG (29.0-34.0); MCHC 35.1 G/DL (30.0-36.0); MCV 88.8 FL (86-99); MEAN PLAT.VOLUME 9.9 uM^3 (9.0-12.4); MONOCYTE (%) 11.5 % (3-12); MONOCYTE COUNT 0.6 K/uL (0-0.8); NEUTROPHIL (%) 61.4 % (45-76); NEUTROPHIL COUNT 3.2 K/uL (1.8-6.4); PLATELET COUNT 179 K/uL (156-360); RBC DIS.WIDTH-CV 15.6 % (11.8-14.6); RED BLOOD COUNT 4.01 M/uL (4.00-5.50); WHITE BLOOD COUNT 5.2 K/uL (4.1-10.2)
[2017-04-27 10:48] LABS: CHLORIDE 93 mEq/L (99-109); POTASSIUM 4.5 mEq/L (3.7-5.4); SODIUM 125 mEq/L (136-147)
[2017-04-27 10:50] LABS: GLUCOSE 79 mg/dL (70-99)
[2017-04-27 10:52] LABS: ANION GAP 7 MEQ/L (2-14); TOTAL BILIRUBIN 0.4 mg/dL (0.0-1.0)
[2017-04-27 10:54] LABS: ALKALINE PHOSPHATASE 194 IU/L (3-129); GFR ESTIMATE (CALCULATED) > 59 mL/min/ (58.99-99999)
[2017-04-27 10:55] LABS: UREA NITROGEN (BUN) 8 mg/dL (9-23)
[2017-04-27 11:03] LABS: TROP-I INTERPRETATION NEGATIVE; TROPONIN-I 0.01 ng/mL (0.0-0.30)
[2017-04-27 11:45] LABS: ADD MIUA? YES; BILIRUBIN NEGATIVE; BLOOD NEGATIVE; COLOR YELLOW ((YELLOW)); GLUCOSE (STRIP) NEGATIVE; KETONES NEGATIVE; LEUKOCYTES TRACE; NITRITE POSITIVE; PROTEIN (STRIP) NEGATIVE; SPECIFIC GRAVITY 1.012 (1.000-1.030); UROBILINOGEN 0.2 MG/DL (0.2-1.0)
[2017-04-27 11:52] LABS: BACTERIA 3+ /HPF; EPITHELIAL CELLS RARE /HPF; MUCUS TRACE /LPF; RED BLOOD CELLS 0-5 /HPF (0-5); UCUL ADDED? YES; WHITE BLOOD CELLS 0-5 /HPF (0-5)
[2017-04-27] MEDS ORDERED: CLOTRIMAZOLE15 GM TP (12:52)
[2017-04-27] MEDS ORDERED: ALBUTEROL2.5 MG/3 M IH (13:01)
[2017-04-27] MEDS ORDERED: NYSTATIN60 GM TP (13:04)
[2017-04-27 15:59] VITALS: BP 133/80; BP 153/70
[2017-04-27 19:34] LABS: TROP-I INTERPRETATION NEGATIVE; TROPONIN-I < 0.01 ng/mL (0.0-0.30)
[2017-04-27 20:00] VITALS: BP 125/85
[2017-04-27 23:12] VITALS: BP 95/69
[2017-04-28 03:12] VITALS: BP 115/56
[2017-04-28 03:51] LABS: TROP-I INTERPRETATION NEGATIVE; TROPONIN-I < 0.01 ng/mL (0.0-0.30)
[2017-04-28 09:34] LABS: ANION GAP 6 MEQ/L (2-14); CHLORIDE 95 MEQ/L (99-109); POTASSIUM 4.6 MEQ/L (3.7-5.4); SAMPLE HEMOLYSIS CHECK 0; SAMPLE ICTERIC CHECK 0; SAMPLE LIPEMIA CHECK 0; SODIUM 129 MEQ/L (136-147)
[2017-04-28 09:39] LABS: GFR ESTIMATE (CALCULATED) > 59 mL/min/ (58.99-99999); UREA NITROGEN (BUN) 9 mg/dL (9-23)
[2017-04-28 09:41] LABS: GLUCOSE 99 mg/dL (70-99)
[2017-04-28 10:00] VITALS: BP 138/63
[2017-04-28 12:02] VITALS: BP 135/68
== END 2017-04-28 19:23 | disposition home or self-care (01) ==
LOC: EME 09:13 → EDOF 13:27 → 5WEST 13:27 → EDOF 13:27 → ENRESERV 13:30 → 5WEST 14:51
PROVIDERS: Emergency Medicine; Internal Medicine; Nurse Practitioner Family
DX: J98.11 Atelectasis (principal); R09.02 Hypoxemia; F79 Unspecified intellectual disabilities; I67.5 Moyamoya disease; I10 Essential (primary) hypertension; R13.10 Dysphagia, unspecified; Z93.1 Gastrostomy status; G40.909 Epilepsy, unspecified, not intractable, without status epilepticus; G82.50 Quadriplegia, unspecified; N39.0 Urinary tract infection, site not specified; E87.1 Hypo-osmolality and hyponatremia; Z66 Do not resuscitate; Z88.2 Allergy status to sulfonamides
CPT/HCPCS: 71010; 71250; 80048; 80053; 81003; 83605; 84484; 85025; 87040; 87077; 87086; 87186; 93005; 94799; 99281; 99285; G0378; J1650; J2543; J7030

== ENCOUNTER 2017-05-19 06:44 | Emergency (ER) | payer OTHER ==
[~2017-05-19] VITALS: Wt 51.6 kg
[~2017-05-19 06:44] MED LIST changes: +ALBUTEROL2.5 MG/3 M IH; +CLOTRIMAZOLE15 GM TP; +NYSTATIN60 GM TP; -ROBITUSSIN100 MG/5 M PO
[2017-05-19 07:36] LABS: BASOPHIL (%) 0.4 % (0-1); EOSINOPHIL (%) 1.4 % (0-5); EOSINOPHIL COUNT 0.1 K/uL (0-0.3); HEMATOCRIT 38.7 % (38.0-50.0); HEMOGLOBIN 13.7 G/DL (12.5-16.6); IMMATURE GRANULOCYTE (%) 0.2 % (0.0-0.7); LYMPHOCYTE (%) 5.9 % (15-42); LYMPHOCYTE COUNT 0.3 K/uL (1.0-2.8); MCH 32.1 PG (29.0-34.0); MCHC 35.4 G/DL (30.0-36.0); MCV 90.6 FL (86-99); MONOCYTE (%) 9.5 % (3-12); MONOCYTE COUNT 0.5 K/uL (0-0.8); NEUTROPHIL (%) 82.6 % (45-76); NEUTROPHIL COUNT 4.6 K/uL (1.8-6.4); PLATELET COUNT 184 K/uL (156-360); RBC DIS.WIDTH-CV 15.2 % (11.8-14.6); RBC DIS.WIDTH-SD 50.7 % (39-53); RED BLOOD COUNT 4.27 M/uL (4.00-5.50); WHITE BLOOD COUNT 5.6 K/uL (4.1-10.2)
[2017-05-19 08:09] LABS: ALBUMIN 4.1 G/DL (3.2-4.8); ALKALINE PHOSPHATASE 192 IU/L (3-129); ALT (GPT) 28 IU/L (3-49); AST (GOT) 18 IU/L (2-34); CHLORIDE 93 MEQ/L (99-109); CREATININE 0.4 MG/DL (0.6-1.3); GFR ESTIMATE (CALCULATED) > 59 mL/min/ (58.99-99999); GLUCOSE 108 mg/dL (70-99); POTASSIUM 4.6 MEQ/L (3.7-5.4); SODIUM 126 MEQ/L (136-147); TOTAL BILIRUBIN 0.5 MG/DL (0.0-1.0); UREA NITROGEN (BUN) 11 mg/dL (9-23)
[2017-05-19 12:24] VITALS: BP 144/80
[2017-05-20] MEDS ORDERED: DIAZEPAM5 MG/1 M2 GT (13:04)
[2017-05-20] MEDS ORDERED: VALIUM5 MG GT (13:06)
== END 2017-05-19 12:27 | disposition home or self-care (01) ==
LOC: EME 06:44
PROVIDERS: Physician Assistant
DX: J98.4 Other disorders of lung (principal); E87.1 Hypo-osmolality and hyponatremia; L25.9 Unspecified contact dermatitis, unspecified cause; F72 Severe intellectual disabilities; R06.02 Shortness of breath; R05 Cough; Z99.81 Dependence on supplemental oxygen; I10 Essential (primary) hypertension; Z93.1 Gastrostomy status
CPT/HCPCS: 31720; 71045; 80053; 85025; 99281; 99285; J7030

== ENCOUNTER 2017-05-19 19:14 | Inpatient (IN) | payer OTHER ==
[~2017-05-19] VITALS: Ht 149.9 cm; Wt 64.3 kg
[2017-05-19 21:29] LABS: HEMATOCRIT 34.1 % (38.0-50.0); HEMOGLOBIN 12.1 G/DL (12.5-16.6); MCH 32.1 PG (29.0-34.0); MCHC 35.5 G/DL (30.0-36.0); MCV 90.5 FL (86-99); PLATELET COUNT 140 K/uL (156-360); RBC DIS.WIDTH-CV 15.1 % (11.8-14.6); RBC DIS.WIDTH-SD 50.1 % (39-53); RED BLOOD COUNT 3.77 M/uL (4.00-5.50); WHITE BLOOD COUNT 8.8 K/uL (4.1-10.2)
[2017-05-19 21:43] LABS: CHLORIDE 98 mEq/L (99-109); SODIUM 130 mEq/L (136-147)
[2017-05-19 21:45] LABS: GLUCOSE 84 mg/dL (70-99)
[2017-05-19 21:46] LABS: POTASSIUM 3.5 mEq/L (3.7-5.4)
[2017-05-19 21:49] LABS: CREATININE 0.5 mg/dL (0.6-1.3); GFR ESTIMATE (CALCULATED) > 59 mL/min/ (58.99-99999); UREA NITROGEN (BUN) 7 mg/dL (9-23)
[2017-05-20] MEDS ORDERED: DIAZEPAM5 MG/1 M2 GT (13:04)
[2017-05-20] MEDS ORDERED: VALIUM5 MG GT (13:06)
[2017-05-20 15:42] LABS: HEMATOCRIT 34.1 % (38.0-50.0); HEMOGLOBIN 11.7 G/DL (12.5-16.6); MCH 32.4 PG (29.0-34.0); MCHC 34.3 G/DL (30.0-36.0); MCV 94.5 FL (86-99); PLATELET COUNT 123 K/uL (156-360); RBC DIS.WIDTH-CV 15.6 % (11.8-14.6); RBC DIS.WIDTH-SD 54.6 % (39-53); RED BLOOD COUNT 3.61 M/uL (4.00-5.50); WHITE BLOOD COUNT 7.7 K/uL (4.1-10.2)
[2017-05-20 15:50] LABS: CHLORIDE 105 mEq/L (99-109); POTASSIUM 3.8 mEq/L (3.7-5.4); SODIUM 134 mEq/L (136-147)
[2017-05-20 15:52] LABS: GLUCOSE 68 mg/dL (70-99)
[2017-05-20 15:56] LABS: CREATININE 0.5 mg/dL (0.6-1.3); GFR ESTIMATE (CALCULATED) > 59 mL/min/ (58.99-99999)
[2017-05-20 15:57] LABS: UREA NITROGEN (BUN) 7 mg/dL (9-23)
[2017-05-20 16:40] VITALS: BP 115/66
[2017-05-20 20:30] VITALS: BP 121/75
[2017-05-21 01:15] VITALS: BP 103/53
[2017-05-21 05:42] VITALS: BP 121/60
[2017-05-21 05:49] LABS: HEMATOCRIT 32.7 % (38.0-50.0); MCH 31.9 PG (29.0-34.0); MCHC 33.6 G/DL (30.0-36.0); MCV 94.8 FL (86-99); PLATELET COUNT 123 K/uL (156-360); RBC DIS.WIDTH-CV 15.7 % (11.8-14.6); RBC DIS.WIDTH-SD 54.4 % (39-53); RED BLOOD COUNT 3.45 M/uL (4.00-5.50); WHITE BLOOD COUNT 6.4 K/uL (4.1-10.2)
[2017-05-21 06:08] LABS: CREATININE 0.3 MG/DL (0.6-1.3); GFR ESTIMATE (CALCULATED) > 59 mL/min/ (58.99-99999); GLUCOSE 58 mg/dL (70-99); POTASSIUM 3.7 MEQ/L (3.7-5.4); SODIUM 134 MEQ/L (136-147); UREA NITROGEN (BUN) 6 mg/dL (9-23)
[2017-05-21 06:09] LABS: CHLORIDE 104 MEQ/L (99-109)
[2017-05-21 06:55] LABS: ABS NEUTROPHIL COUNT 5.5; ATYPICAL LYMPHOCYTE 2.6 %; BAND NEUTROPHILS 1.7 % (0-8.0); EOSINOPHIL ABS CT 0; LYMPHOCYTES 9.6 % (15.0-45.0); MONOCYTES 2.6 % (0-9.0); SEG.NEUTROPHILS 83.5 % (46.0-76.0)
[2017-05-21 07:16] VITALS: BP 120/60
[2017-05-21 11:41] VITALS: BP 108/53
[2017-05-21 14:46] VITALS: BP 116/63
[2017-05-21 20:30] VITALS: BP 136/62
[2017-05-22 00:25] VITALS: BP 125/65
[2017-05-22 05:04] LABS: BASOPHIL (%) 0 % (0-1); EOSINOPHIL (%) 0 % (0-5); HEMATOCRIT 31.9 % (38.0-50.0); HEMOGLOBIN 10.8 G/DL (12.5-16.6); IMMATURE GRANULOCYTE (%) 0.7 % (0.0-0.7); LYMPHOCYTE (%) 14.4 % (15-42); LYMPHOCYTE COUNT 0.6 K/uL (1.0-2.8); MCH 31.8 PG (29.0-34.0); MCHC 33.9 G/DL (30.0-36.0); MCV 93.8 FL (86-99); MONOCYTE (%) 1.4 % (3-12); MONOCYTE COUNT 0.1 K/uL (0-0.8); NEUTROPHIL (%) 83.5 % (45-76); NEUTROPHIL COUNT 3.5 K/uL (1.8-6.4); PLATELET COUNT 129 K/uL (156-360); RBC DIS.WIDTH-CV 15.5 % (11.8-14.6); RBC DIS.WIDTH-SD 53.1 % (39-53); WHITE BLOOD COUNT 4.2 K/uL (4.1-10.2)
[2017-05-22 05:35] LABS: CHLORIDE 107 MEQ/L (99-109); CREATININE 0.3 MG/DL (0.6-1.3); GFR ESTIMATE (CALCULATED) > 59 mL/min/ (58.99-99999); GLUCOSE 184 mg/dL (70-99); POTASSIUM 3.4 MEQ/L (3.7-5.4); SODIUM 138 MEQ/L (136-147); UREA NITROGEN (BUN) 7 mg/dL (9-23)
[2017-05-22 07:54] VITALS: BP 134/87
[2017-05-22 11:51] VITALS: BP 144/68
[2017-05-22 15:31] VITALS: BP 126/60
[2017-05-22 19:00] VITALS: BP 121/85
[2017-05-22 23:00] VITALS: BP 124/57
[2017-05-23 03:00] VITALS: BP 118/69
[2017-05-23 06:45] LABS: BASOPHIL (%) 0 % (0-1); EOSINOPHIL (%) 0.2 % (0-5); HEMATOCRIT 31.9 % (38.0-50.0); HEMOGLOBIN 10.8 G/DL (12.5-16.6); IMMATURE GRANULOCYTE (%) 1.7 % (0.0-0.7); LYMPHOCYTE COUNT 0.7 K/uL (1.0-2.8); MCH 31.6 PG (29.0-34.0); MCHC 33.9 G/DL (30.0-36.0); MCV 93.3 FL (86-99); MONOCYTE (%) 5.9 % (3-12); MONOCYTE COUNT 0.4 K/uL (0-0.8); NEUTROPHIL (%) 82.2 % (45-76); NEUTROPHIL COUNT 5.5 K/uL (1.8-6.4); RBC DIS.WIDTH-CV 15.5 % (11.8-14.6); RBC DIS.WIDTH-SD 53.3 % (39-53); RED BLOOD COUNT 3.42 M/uL (4.00-5.50); WHITE BLOOD COUNT 6.6 K/uL (4.1-10.2)
[2017-05-23 06:49] LABS: CHLORIDE 108 MEQ/L (99-109); CREATININE 0.4 MG/DL (0.6-1.3); GFR ESTIMATE (CALCULATED) > 59 mL/min/ (58.99-99999); GLUCOSE 160 mg/dL (70-99); MAGNESIUM 1.9 mg/dl (1.3-2.7); SODIUM 140 MEQ/L (136-147); UREA NITROGEN (BUN) 12 mg/dL (9-23)
[2017-05-23 07:27] VITALS: BP 120/69
[2017-05-23 07:54] LABS: PLAT.SUFFICIENCY DECREASED; PLATELET COUNT 134 K/uL (156-360)
[2017-05-23 11:22] VITALS: BP 127/69
[2017-05-23 15:49] VITALS: BP 139/63
[2017-05-23 19:00] VITALS: BP 144/95
[2017-05-23 23:00] VITALS: BP 139/90
[2017-05-24 03:30] VITALS: BP 129/95
[2017-05-24 06:35] LABS: CHLORIDE 108 MEQ/L (99-109); CREATININE 0.5 MG/DL (0.6-1.3); GFR ESTIMATE (CALCULATED) > 59 mL/min/ (58.99-99999); GLUCOSE 156 mg/dL (70-99); POTASSIUM 3.8 MEQ/L (3.7-5.4); SODIUM 144 MEQ/L (136-147); UREA NITROGEN (BUN) 15 mg/dL (9-23)
[2017-05-24 06:55] VITALS: BP 144/70
[2017-05-24 06:55] LABS: BASOPHIL (%) 0.3 % (0-1); EOSINOPHIL (%) 0 % (0-5); HEMATOCRIT 31.1 % (38.0-50.0); IMMATURE GRANULOCYTE (%) 1.9 % (0.0-0.7); LYMPHOCYTE (%) 15.4 % (15-42); LYMPHOCYTE COUNT 0.9 K/uL (1.0-2.8); MCH 30.4 PG (29.0-34.0); MCHC 32.2 G/DL (30.0-36.0); MCV 94.5 FL (86-99); MONOCYTE (%) 10.4 % (3-12); MONOCYTE COUNT 0.6 K/uL (0-0.8); NEUTROPHIL COUNT 4.2 K/uL (1.8-6.4); PLATELET COUNT 165 K/uL (156-360); RBC DIS.WIDTH-CV 15.1 % (11.8-14.6); RBC DIS.WIDTH-SD 53.5 % (39-53); RED BLOOD COUNT 3.29 M/uL (4.00-5.50); WHITE BLOOD COUNT 5.8 K/uL (4.1-10.2)
[2017-05-24 11:39] VITALS: BP 140/95
[2017-05-24 15:18] VITALS: BP 141/79
[2017-05-24 20:00] VITALS: BP 157/79
[2017-05-24 23:49] VITALS: BP 148/72
[2017-05-25 04:08] VITALS: BP 142/76
[2017-05-25 09:50] VITALS: BP 165/73
[2017-05-25 12:44] VITALS: BP 128/80
[2017-05-25 15:35] VITALS: BP 134/60
[2017-05-25 20:30] VITALS: BP 145/65
[2017-05-26] VITALS (8 sets, daily range): BP systolic 93–133; BP diastolic 51–70
[2017-05-26 07:11] LABS: CHLORIDE 101 MEQ/L (99-109); CREATININE 0.5 MG/DL (0.6-1.3); GFR ESTIMATE (CALCULATED) > 59 mL/min/ (58.99-99999); GLUCOSE 139 mg/dL (70-99); POTASSIUM 3.5 MEQ/L (3.7-5.4); SODIUM 142 MEQ/L (136-147)
[2017-05-26 07:22] LABS: UREA NITROGEN (BUN) 23 mg/dL (9-23)
[2017-05-26 07:34] LABS: BASOPHIL (%) 0.2 % (0-1); EOSINOPHIL (%) 0 % (0-5); HEMATOCRIT 37.6 % (38.0-50.0); HEMOGLOBIN 12.3 G/DL (12.5-16.6); IMMATURE GRANULOCYTE (%) 1.4 % (0.0-0.7); LYMPHOCYTE (%) 17.4 % (15-42); MCHC 32.7 G/DL (30.0-36.0); MCV 94.7 FL (86-99); MONOCYTE (%) 9.6 % (3-12); MONOCYTE COUNT 0.6 K/uL (0-0.8); NEUTROPHIL (%) 71.4 % (45-76); NEUTROPHIL COUNT 4.2 K/uL (1.8-6.4); PLATELET COUNT 242 K/uL (156-360); RBC DIS.WIDTH-CV 14.4 % (11.8-14.6); RBC DIS.WIDTH-SD 50.4 % (39-53); RED BLOOD COUNT 3.97 M/uL (4.00-5.50); WHITE BLOOD COUNT 5.9 K/uL (4.1-10.2)
[2017-05-26] MEDS ORDERED: PREDNISONE5 MG/1 ML GT (15:02)
[2017-05-26] MEDS ORDERED: AUGMENTIN50 MG/ML PO (15:02)
[2017-05-27 03:10] VITALS: BP 100/51
[2017-05-27 08:09] VITALS: BP 150/64
[2017-05-27 12:25] VITALS: BP 118/58
[2017-05-27 16:00] VITALS: BP 115/68
[2017-05-27 20:01] VITALS: BP 127/70
[2017-05-27 22:50] VITALS: BP 133/56
[2017-05-28] VITALS (7 sets, daily range): BP systolic 99–125; BP diastolic 55–71
[2017-05-29 03:39] VITALS: BP 122/66
[2017-05-29 06:42] LABS: CHLORIDE 99 MEQ/L (99-109); CREATININE 0.4 MG/DL (0.6-1.3); GFR ESTIMATE (CALCULATED) > 59 mL/min/ (58.99-99999); POTASSIUM 3.9 MEQ/L (3.7-5.4); SODIUM 137 MEQ/L (136-147); UREA NITROGEN (BUN) 25 mg/dL (9-23)
[2017-05-29 06:43] LABS: GLUCOSE 83 mg/dL (70-99)
[2017-05-29 08:30] VITALS: BP 109/56
[2017-05-29 15:57] VITALS: BP 116/69
[2017-05-30 00:11] VITALS: BP 103/58
[2017-05-30 08:22] VITALS: BP 127/61
[2017-05-30 16:53] VITALS: BP 120/62
[2017-05-30 19:59] VITALS: BP 97/54
[2017-05-30 23:29] VITALS: BP 110/57
[2017-05-31 04:11] VITALS: BP 125/56
[2017-05-31 08:30] VITALS: BP 115/55
[2017-05-31 12:42] VITALS: BP 120/59
[2017-05-31 20:25] VITALS: BP 131/90
[2017-05-31 23:18] VITALS: BP 120/60
[2017-06-01 08:41] VITALS: BP 131/66
[2017-06-01 15:35] VITALS: BP 126/70
[2017-06-01 23:44] VITALS: BP 137/74
[2017-06-02 08:16] VITALS: BP 127/75
[2017-06-02 16:39] VITALS: BP 123/76
[2017-06-02 23:54] VITALS: BP 109/53; BP 110/78
[2017-06-03 08:16] VITALS: BP 123/62
[2017-06-03 15:24] VITALS: BP 134/66
[2017-06-04 00:56] VITALS: BP 132/65
[2017-06-04 08:22] VITALS: BP 128/77
[2017-06-04 15:00] VITALS: BP 123/61
[2017-06-05] VITALS: BP 107/57
[2017-06-05 07:54] VITALS: BP 118/62
[2017-06-05] MEDS ORDERED: CLONIDINE1 EACH TD (10:50)
[2017-06-05 15:31] VITALS: BP 110/62
[2017-06-06 00:02] VITALS: BP 117/76
[2017-06-06 08:12] VITALS: BP 123/78
[2017-06-06 16:37] VITALS: BP 126/58
[2017-06-06 23:44] VITALS: BP 119/57
[2017-06-07 07:55] VITALS: BP 112/56
[2017-06-07 16:40] VITALS: BP 125/73
[2017-06-07 23:27] VITALS: BP 124/59
[2017-06-08 07:29] VITALS: BP 117/73
[2017-06-08] MEDS ORDERED: DIASTAT ACUDIAL10 MG PR (14:59)
[2017-06-08] MEDS ORDERED: DIAZEPAM5 MG/1 M2 GT (14:59)
[2017-06-08 15:46] VITALS: BP 97/63
== END 2017-06-08 17:31 | DRG 871 ==
LOC: DELPENDDIS → EME 19:14 → 4EAST 05-20 04:00 → EDOF 05-20 04:00 → ENRESERV 05-20 04:03 → 4EAST 05-20 16:15 → ENPENDDIS 05-26 → ENRESERV 05-28 01:27 → 3EAST 05-28 01:58
PROVIDERS: Emergency Medicine; Hospitalist; Internal Medicine
PROC: 0D2DXUZ Change Feeding Device in Lower Intestinal Tract, External Approach (ICD-10-PCS; principal; 2017-06-02)
DX: A41.9 Sepsis, unspecified organism (principal); J69.0 Pneumonitis due to inhalation of food and vomit; J96.01 Acute respiratory failure with hypoxia; K94.22 Gastrostomy infection; L03.311 Cellulitis of abdominal wall; K94.23 Gastrostomy malfunction; E87.1 Hypo-osmolality and hyponatremia; R13.10 Dysphagia, unspecified; G80.0 Spastic quadriplegic cerebral palsy; I67.5 Moyamoya disease; N30.90 Cystitis, unspecified without hematuria; B35.6 Tinea cruris; J98.01 Acute bronchospasm; L30.4 Erythema intertrigo; D64.9 Anemia, unspecified; G40.909 Epilepsy, unspecified, not intractable, without status epilepticus; F79 Unspecified intellectual disabilities; K62.89 Other specified diseases of anus and rectum; K59.00 Constipation, unspecified; E87.6 Hypokalemia; K21.9 Gastro-esophageal reflux disease without esophagitis; I10 Essential (primary) hypertension; Y95 Nosocomial condition; Z66 Do not resuscitate; Z87.01 Personal history of pneumonia (recurrent); Z87.440 Personal history of urinary (tract) infections; Z75.1 Person awaiting admission to adequate facility elsewhere
CPT/HCPCS: 31720; 71045; 71275; 74177; 80048; 80053; 80202; 81003; 83605; 83735; 85025; 85027; 85379; 87040; 87070; 87205; 87449; 87502; 93005; 94640; 94640 76; 94644; 94760; 94799; 99202; 99281; 99285; C1769; J0456; J1644; J1940; J1953; J2060; J2405; J2543; J2920; J3370; J7030; J7042; J7050; J7512

== ENCOUNTER 2017-08-08 00:05 | Emergency (ER) | payer OTHER ==
[~2017-08-08] VITALS: Ht 152.4 cm; Wt 49.2 kg
[~2017-08-08 00:05] MED LIST changes: +AUGMENTIN50 MG/ML PO; +PREDNISONE5 MG/1 ML GT; +VALIUM5 MG GT
[2017-08-08 01:33] LABS: HEMATOCRIT 44.2 % (38.0-50.0); HEMOGLOBIN 15.1 G/DL (12.5-16.6); MCH 31.9 PG (29.0-34.0); MCHC 34.2 G/DL (30.0-36.0); MCV 93.4 FL (86-99); PLATELET COUNT 255 K/uL (156-360); RBC DIS.WIDTH-CV 12.9 % (11.8-14.6); RBC DIS.WIDTH-SD 44.3 % (39-53); RED BLOOD COUNT 4.73 M/uL (4.00-5.50); WHITE BLOOD COUNT 11.7 K/uL (4.1-10.2)
[2017-08-08 01:47] LABS: ALBUMIN 3.9 g/dL (3.2-4.8); CHLORIDE 102 mEq/L (99-109); POTASSIUM 4.1 mEq/L (3.7-5.4); SODIUM 136 mEq/L (136-147)
[2017-08-08 01:49] LABS: GLUCOSE 100 mg/dL (70-99); TOTAL PROTEIN 7.1 g/dL (6.4-8.3)
[2017-08-08 01:51] LABS: TOTAL BILIRUBIN 0.4 mg/dL (0.0-1.0)
[2017-08-08 01:53] LABS: ALKALINE PHOSPHATASE 185 IU/L (3-129); CREATININE 0.5 mg/dL (0.6-1.3); GFR ESTIMATE (CALCULATED) > 59 mL/min/ (58.99-99999)
[2017-08-08 01:54] LABS: UREA NITROGEN (BUN) 12 mg/dL (9-23)
[2017-08-08 01:55] LABS: AST (GOT) 16 IU/L (2-34)
[2017-08-08 01:56] LABS: ALT (GPT) 45 IU/L (3-49); LIPASE 8 U/L (1.0-51.0)
[2017-08-08 01:57] LABS: CREATINE KINASE 46 IU/L (1-294); TOTAL CK 46 IU/L (1-294)
[2017-08-08 02:03] LABS: CK-MB 1.1 ng/mL (0.0-4.9); CKMB RELATIVE INDEX 2.4 (0.0-3.9)
[2017-08-08 03:50] VITALS: BP 102/60
== END 2017-08-08 04:13 | disposition home or self-care (01) ==
LOC: EME → EDBD 00:05 → EME 00:05
PROVIDERS: Emergency Medicine
DX: G40.909 Epilepsy, unspecified, not intractable, without status epilepticus (principal); I67.5 Moyamoya disease; G82.50 Quadriplegia, unspecified; I10 Essential (primary) hypertension; Z87.01 Personal history of pneumonia (recurrent); Z93.1 Gastrostomy status; Z88.2 Allergy status to sulfonamides
CPT/HCPCS: 71045; 80053; 82550; 82553; 83605; 83690; 85027; 87040; 99281; 99284

== ENCOUNTER 2017-09-04 12:24 | Inpatient (IN) | payer OTHER ==
[~2017-09-04] VITALS: Ht 152.4 cm; Wt 54.0 kg
[2017-09-04 13:31] LABS: INTER. NORMALIZED RATIO 1.1
[2017-09-04 13:32] LABS: BASOPHIL (%) 0.3 % (0-1); EOSINOPHIL (%) 0.2 % (0-5); IMMATURE GRANULOCYTE (%) 0.4 % (0.0-0.7); MCHC 34.6 G/DL (30.0-36.0); MCV 92.4 FL (86-99); MONOCYTE (%) 7.5 % (3-12); MONOCYTE COUNT 0.8 K/uL (0-0.8); NEUTROPHIL (%) 82.6 % (45-76); NEUTROPHIL COUNT 8.9 K/uL (1.8-6.4); PLATELET COUNT 232 K/uL (156-360); RBC DIS.WIDTH-CV 12.2 % (11.8-14.6); RBC DIS.WIDTH-SD 41.7 % (39-53); RED BLOOD COUNT 5.41 M/uL (4.00-5.50); WHITE BLOOD COUNT 10.8 K/uL (4.1-10.2)
[2017-09-04 13:33] LABS: HEMOGLOBIN 17.3 G/DL (12.5-16.6); PTT 32.7 SEC (25-37)
[2017-09-04 13:39] LABS: ALBUMIN 4.7 g/dL (3.2-4.8); CHLORIDE 100 mEq/L (99-109); POTASSIUM 5.3 mEq/L (3.7-5.4); SODIUM 132 mEq/L (136-147)
[2017-09-04 13:41] LABS: GLUCOSE 111 mg/dL (70-99); TOTAL PROTEIN 8.7 g/dL (6.4-8.3)
[2017-09-04 13:43] LABS: TOTAL BILIRUBIN 0.7 mg/dL (0.0-1.0)
[2017-09-04 13:45] LABS: ALKALINE PHOSPHATASE 240 IU/L (3-129); CREATININE 0.6 mg/dL (0.6-1.3); GFR ESTIMATE (CALCULATED) > 59 mL/min/ (58.99-99999)
[2017-09-04 13:46] LABS: AST (GOT) 36 IU/L (2-34); UREA NITROGEN (BUN) 9 mg/dL (9-23)
[2017-09-04 13:48] LABS: ALT (GPT) 59 IU/L (3-49); LIPASE 11 U/L (1.0-51.0)
[2017-09-04 13:48] LABS: APPEARANCE CLEAR ((CLEAR)); BILIRUBIN NEGATIVE; BLOOD SMALL; COLOR YELLOW ((YELLOW)); GLUCOSE (STRIP) NEGATIVE; KETONES NEGATIVE; LEUKOCYTES NEGATIVE; NITRITE NEGATIVE; PROTEIN (STRIP) NEGATIVE; SPECIFIC GRAVITY 1.017 (1.000-1.030); UROBILINOGEN 0.2 MG/DL (0.2-1.0)
[2017-09-04 13:51] LABS: TROP-I INTERPRETATION NEGATIVE; TROPONIN-I < 0.01 ng/mL (0.0-0.30)
[2017-09-04 13:57] LABS: BACTERIA NONE SEEN /HPF; EPITHELIAL CELLS RARE /HPF; MUCUS TRACE /LPF; RED BLOOD CELLS 15-20 /HPF (0-5); UCUL ADDED? NO; WHITE BLOOD CELLS 0-5 /HPF (0-5)
[2017-09-04] MEDS ORDERED: RULOX SUSPENSI355 ML TP (16:22)
[2017-09-04] MEDS ORDERED: NYSTATIN15 GM TP (16:25)
[2017-09-04] MEDS ORDERED: PREDNISONE5 MG GT (16:27)
[2017-09-04 17:24] VITALS: BP 95/60
[2017-09-04 20:08] VITALS: BP 134/82
[2017-09-05 00:03] VITALS: BP 108/57
[2017-09-05 03:56] VITALS: BP 105/66
[2017-09-05 07:10] VITALS: BP 106/51
[2017-09-05 10:52] LABS: BASOPHIL (%) 0.6 % (0-1); EOSINOPHIL COUNT 0.4 K/uL (0-0.3); HEMATOCRIT 41.2 % (38.0-50.0); LYMPHOCYTE (%) 32.5 % (15-42); LYMPHOCYTE COUNT 1.6 K/uL (1.0-2.8); MCH 31.9 PG (29.0-34.0); MONOCYTE (%) 12.9 % (3-12); MONOCYTE COUNT 0.6 K/uL (0-0.8); NEUTROPHIL COUNT 2.2 K/uL (1.8-6.4); PLATELET COUNT 170 K/uL (156-360); RBC DIS.WIDTH-CV 12.4 % (11.8-14.6); RBC DIS.WIDTH-SD 44.2 % (39-53); WHITE BLOOD COUNT 4.9 K/uL (4.1-10.2)
[2017-09-05 10:53] LABS: ALBUMIN 3.3 G/DL (3.2-4.8); ALKALINE PHOSPHATASE 135 IU/L (3-129); ALT (GPT) 39 IU/L (3-49); AST (GOT) 20 IU/L (2-34); CHLORIDE 107 MEQ/L (99-109); CREATININE 0.4 MG/DL (0.6-1.3); GFR ESTIMATE (CALCULATED) > 59 mL/min/ (58.99-99999); GLUCOSE 139 mg/dL (70-99); HEMOGLOBIN 13.6 G/DL (12.5-16.6); MCV 96.5 FL (86-99); RED BLOOD COUNT 4.27 M/uL (4.00-5.50); SODIUM 134 MEQ/L (136-147); TOTAL BILIRUBIN 0.6 MG/DL (0.0-1.0); TOTAL PROTEIN 5.8 G/DL (6.4-8.3); UREA NITROGEN (BUN) 5 mg/dL (9-23)
[2017-09-05 11:33] VITALS: BP 110/56
[2017-09-05 16:04] VITALS: BP 120/72
[2017-09-05 20:01] VITALS: BP 130/93
[2017-09-06 01:15] VITALS: BP 129/71
[2017-09-06 03:52] VITALS: BP 157/75
[2017-09-06 07:20] VITALS: BP 159/77
[2017-09-06 12:17] VITALS: BP 142/68
[2017-09-06 16:01] VITALS: BP 133/84
[2017-09-06 20:30] VITALS: BP 134/68
[2017-09-07 00:33] VITALS: BP 130/63
[2017-09-07 04:04] VITALS: BP 136/76
[2017-09-07 07:35] VITALS: BP 151/71
[2017-09-07 12:13] VITALS: BP 177/96
[2017-09-07 17:00] VITALS: BP 126/68
[2017-09-07 20:18] VITALS: BP 179/81
[2017-09-08 00:16] VITALS: BP 142/79
[2017-09-08 03:55] VITALS: BP 175/83
[2017-09-08 07:46] VITALS: BP 131/74
[2017-09-08 10:19] LABS: HEMATOCRIT 42.6 % (38.0-50.0); HEMOGLOBIN 14.4 G/DL (12.5-16.6); MCH 31.8 PG (29.0-34.0); MCHC 33.8 G/DL (30.0-36.0); RBC DIS.WIDTH-CV 12.2 % (11.8-14.6); RBC DIS.WIDTH-SD 42.1 % (39-53); RED BLOOD COUNT 4.53 M/uL (4.00-5.50); WHITE BLOOD COUNT 5.4 K/uL (4.1-10.2)
[2017-09-08 10:29] LABS: PLATELET COUNT 261 K/uL (156-360)
[2017-09-08 10:54] LABS: ALBUMIN 3.9 G/DL (3.2-4.8); ALKALINE PHOSPHATASE 131 IU/L (3-129); ALT (GPT) 65 IU/L (3-49); AST (GOT) 25 IU/L (2-34); CHLORIDE 106 MEQ/L (99-109); CREATININE 0.4 MG/DL (0.6-1.3); GFR ESTIMATE (CALCULATED) > 59 mL/min/ (58.99-99999); GLUCOSE 111 mg/dL (70-99); MAGNESIUM 2.2 mg/dl (1.3-2.7); POTASSIUM 4.7 MEQ/L (3.7-5.4); SODIUM 137 MEQ/L (136-147); TOTAL BILIRUBIN 0.5 MG/DL (0.0-1.0); TOTAL PROTEIN 6.5 G/DL (6.4-8.3); UREA NITROGEN (BUN) 8 mg/dL (9-23)
[2017-09-08 12:00] VITALS: BP 126/78
[2017-09-08 16:02] VITALS: BP 150/80
[2017-09-08 20:19] VITALS: BP 122/77
[2017-09-09 00:03] VITALS: BP 143/55
[2017-09-09 04:12] VITALS: BP 162/76
[2017-09-09 07:09] LABS: BASOPHIL (%) 0.6 % (0-1); EOSINOPHIL (%) 6.5 % (0-5); EOSINOPHIL COUNT 0.5 K/uL (0-0.3); HEMATOCRIT 45.2 % (38.0-50.0); HEMOGLOBIN 14.7 G/DL (12.5-16.6); IMMATURE GRANULOCYTE (%) 0.1 % (0.0-0.7); LYMPHOCYTE (%) 29.9 % (15-42); LYMPHOCYTE COUNT 2.1 K/uL (1.0-2.8); MCHC 32.5 G/DL (30.0-36.0); MCV 95.4 FL (86-99); MONOCYTE (%) 10.1 % (3-12); MONOCYTE COUNT 0.7 K/uL (0-0.8); NEUTROPHIL (%) 52.8 % (45-76); NEUTROPHIL COUNT 3.7 K/uL (1.8-6.4); PLATELET COUNT 259 K/uL (156-360); RBC DIS.WIDTH-CV 11.9 % (11.8-14.6); RBC DIS.WIDTH-SD 41.5 % (39-53); RED BLOOD COUNT 4.74 M/uL (4.00-5.50)
[2017-09-09 07:36] VITALS: BP 127/65
[2017-09-09 07:44] LABS: CHLORIDE 104 MEQ/L (99-109); CREATININE 0.5 MG/DL (0.6-1.3); GFR ESTIMATE (CALCULATED) > 59 mL/min/ (58.99-99999); GLUCOSE 109 mg/dL (70-99); POTASSIUM 4.9 MEQ/L (3.7-5.4); SODIUM 142 MEQ/L (136-147); UREA NITROGEN (BUN) 12 mg/dL (9-23)
[2017-09-09 11:47] VITALS: BP 122/72
[2017-09-09 15:48] VITALS: BP 119/58
[2017-09-09 21:14] VITALS: BP 134/74
[2017-09-10 00:30] VITALS: BP 132/80
[2017-09-10 04:28] VITALS: BP 154/72
[2017-09-10 07:56] LABS: BASOPHIL (%) 0.6 % (0-1); EOSINOPHIL (%) 7.4 % (0-5); EOSINOPHIL COUNT 0.5 K/uL (0-0.3); HEMATOCRIT 44.5 % (38.0-50.0); HEMOGLOBIN 15.1 G/DL (12.5-16.6); IMMATURE GRANULOCYTE (%) 0.2 % (0.0-0.7); LYMPHOCYTE (%) 29.6 % (15-42); LYMPHOCYTE COUNT 1.8 K/uL (1.0-2.8); MCH 31.9 PG (29.0-34.0); MCHC 33.9 G/DL (30.0-36.0); MCV 93.9 FL (86-99); MONOCYTE COUNT 0.8 K/uL (0-0.8); NEUTROPHIL (%) 49.2 % (45-76); NEUTROPHIL COUNT 3.1 K/uL (1.8-6.4); PLATELET COUNT 276 K/uL (156-360); RBC DIS.WIDTH-CV 12.1 % (11.8-14.6); RBC DIS.WIDTH-SD 41.9 % (39-53); RED BLOOD COUNT 4.74 M/uL (4.00-5.50); WHITE BLOOD COUNT 6.2 K/uL (4.1-10.2)
[2017-09-10 08:11] VITALS: BP 130/65
[2017-09-10 08:19] LABS: ALKALINE PHOSPHATASE 143 IU/L (3-129); ALT (GPT) 85 IU/L (3-49); AST (GOT) 35 IU/L (2-34); CHLORIDE 102 MEQ/L (99-109); CREATININE 0.4 MG/DL (0.6-1.3); GFR ESTIMATE (CALCULATED) > 59 mL/min/ (58.99-99999); GLUCOSE 126 mg/dL (70-99); POTASSIUM 4.5 MEQ/L (3.7-5.4); SODIUM 135 MEQ/L (136-147); TOTAL BILIRUBIN 0.5 MG/DL (0.0-1.0); TOTAL PROTEIN 7.2 G/DL (6.4-8.3); UREA NITROGEN (BUN) 14 mg/dL (9-23)
[2017-09-10] MEDS ORDERED: LEVETIRACE100 MG/1 M GT ×3 (10:49→12:03)
[2017-09-10 12:11] VITALS: BP 138/68
== END 2017-09-10 15:36 | disposition home or self-care (01) | DRG 871 ==
LOC: EME 12:24 → 2EAST 15:46 → EDOF 15:46 → ENRESERV 15:47 → 2EAST 17:08 → ENPENDDIS 09-10 12:19 → 2EAST 09-10 15:36
PROVIDERS: Emergency Medicine; Hospitalist
PROC: 0D2DXUZ Change Feeding Device in Lower Intestinal Tract, External Approach (ICD-10-PCS; principal; 2017-09-08)
DX: A41.9 Sepsis, unspecified organism (principal); J69.0 Pneumonitis due to inhalation of food and vomit; J96.91 Respiratory failure, unspecified with hypoxia; G80.0 Spastic quadriplegic cerebral palsy; I67.5 Moyamoya disease; F73 Profound intellectual disabilities; E87.1 Hypo-osmolality and hyponatremia; K94.13 Enterostomy malfunction; I11.9 Hypertensive heart disease without heart failure; K21.9 Gastro-esophageal reflux disease without esophagitis; G80.8 Other cerebral palsy; R47.02 Dysphasia; G40.409 Other generalized epilepsy and epileptic syndromes, not intractable, without status epilepticus; M24.50 Contracture, unspecified joint; Z87.440 Personal history of urinary (tract) infections; Z87.01 Personal history of pneumonia (recurrent)
CPT/HCPCS: 71045; 74018; 80048; 80053; 81003; 83605; 83690; 83735; 83880; 84484; 85025; 85027; 85610; 85730; 87040; 87070; 87205; 87641; 93005; 99202; 99281; 99285; C1769; J0456; J1644; J1956; J2060; J2543; J3370; J7030; J7050

== ENCOUNTER 2017-09-17 02:50 | Inpatient (IN) | payer OTHER ==
[~2017-09-17] VITALS: Ht 137.2 cm; Wt 45.5 kg
[~2017-09-17 02:50] MED LIST changes: +PREDNISONE5 MG GT; +RULOX SUSPENSI355 ML TP
[2017-09-17 03:37] LABS: HEMATOCRIT 44.6 % (38.0-50.0); HEMOGLOBIN 15.5 G/DL (12.5-16.6); MCH 32.2 PG (29.0-34.0); MCHC 34.8 G/DL (30.0-36.0); MCV 92.7 FL (86-99); PLATELET COUNT 321 K/uL (156-360); RBC DIS.WIDTH-CV 12.4 % (11.8-14.6); RBC DIS.WIDTH-SD 42.6 % (39-53); RED BLOOD COUNT 4.81 M/uL (4.00-5.50); WHITE BLOOD COUNT 17.2 K/uL (4.1-10.2)
[2017-09-17 03:46] LABS: ALBUMIN 4.4 g/dL (3.2-4.8); CHLORIDE 97 mEq/L (99-109); SODIUM 134 mEq/L (136-147)
[2017-09-17 03:49] LABS: GLUCOSE 105 mg/dL (70-99)
[2017-09-17 03:51] LABS: TOTAL BILIRUBIN 0.7 mg/dL (0.0-1.0)
[2017-09-17 03:52] LABS: ALKALINE PHOSPHATASE 169 IU/L (3-129); CREATININE 0.6 mg/dL (0.6-1.3); GFR ESTIMATE (CALCULATED) > 59 mL/min/ (58.99-99999)
[2017-09-17 03:53] LABS: UREA NITROGEN (BUN) 5 mg/dL (9-23)
[2017-09-17 03:54] LABS: AST (GOT) 27 IU/L (2-34)
[2017-09-17 03:55] LABS: ALT (GPT) 109 IU/L (3-49)
[2017-09-17 03:56] LABS: LIPASE 5 U/L (1.0-51.0)
[2017-09-17 05:02] LABS: APPEARANCE CLEAR ((CLEAR)); BILIRUBIN NEGATIVE; BLOOD NEGATIVE; COLOR YELLOW ((YELLOW)); GLUCOSE (STRIP) NEGATIVE; KETONES 20; LEUKOCYTES TRACE; NITRITE NEGATIVE; PROTEIN (STRIP) NEGATIVE; SPECIFIC GRAVITY 1.012 (1.000-1.030); UROBILINOGEN 0.2 MG/DL (0.2-1.0)
[2017-09-17 05:07] LABS: BACTERIA NONE SEEN /HPF; EPITHELIAL CELLS NONE SEEN /HPF; MUCUS TRACE /LPF; RED BLOOD CELLS 0-5 /HPF (0-5); UCUL ADDED? YES
[2017-09-17 06:22] VITALS: BP 108/66
[2017-09-17 07:58] VITALS: BP 109/71
[2017-09-17 11:48] VITALS: BP 122/69
[2017-09-17 15:41] VITALS: BP 129/97
[2017-09-17 19:36] VITALS: BP 118/67
[2017-09-17 23:58] VITALS: BP 150/84
[2017-09-18 03:54] VITALS: BP 164/80
[2017-09-18 06:13] LABS: HEMATOCRIT 38.1 % (38.0-50.0); MCH 30.7 PG (29.0-34.0); MCHC 32.5 G/DL (30.0-36.0); MCV 94.3 FL (86-99); PLATELET COUNT 268 K/uL (156-360); RBC DIS.WIDTH-CV 12.2 % (11.8-14.6); RBC DIS.WIDTH-SD 42.4 % (39-53); RED BLOOD COUNT 4.04 M/uL (4.00-5.50); WHITE BLOOD COUNT 11.8 K/uL (4.1-10.2)
[2017-09-18 06:17] LABS: HEMOGLOBIN 12.4 G/DL (12.5-16.6)
[2017-09-18 06:27] LABS: CHLORIDE 105 MEQ/L (99-109); CREATININE 0.4 MG/DL (0.6-1.3); GFR ESTIMATE (CALCULATED) > 59 mL/min/ (58.99-99999); GLUCOSE 97 mg/dL (70-99); SODIUM 137 MEQ/L (136-147); UREA NITROGEN (BUN) 6 mg/dL (9-23)
[2017-09-18 07:26] VITALS: BP 102/51
[2017-09-18 11:59] VITALS: BP 107/71
[2017-09-18 19:40] VITALS: BP 116/73
[2017-09-19 00:35] VITALS: BP 131/88
[2017-09-19 03:28] VITALS: BP 121/76
[2017-09-19 12:55] VITALS: BP 102/61
[2017-09-19 15:48] VITALS: BP 121/56
[2017-09-19 19:37] VITALS: BP 131/88
[2017-09-19 23:26] VITALS: BP 144/73
[2017-09-20 04:14] VITALS: BP 113/71
[2017-09-20 05:32] LABS: BASOPHIL (%) 0.8 % (0-1); EOSINOPHIL (%) 7.7 % (0-5); EOSINOPHIL COUNT 0.4 K/uL (0-0.3); HEMATOCRIT 38.5 % (38.0-50.0); HEMOGLOBIN 12.8 G/DL (12.5-16.6); IMMATURE GRANULOCYTE (%) 0.4 % (0.0-0.7); LYMPHOCYTE (%) 35.6 % (15-42); LYMPHOCYTE COUNT 1.7 K/uL (1.0-2.8); MCH 31.4 PG (29.0-34.0); MCHC 33.2 G/DL (30.0-36.0); MCV 94.6 FL (86-99); MONOCYTE (%) 12.3 % (3-12); MONOCYTE COUNT 0.6 K/uL (0-0.8); NEUTROPHIL (%) 43.2 % (45-76); NEUTROPHIL COUNT 2.1 K/uL (1.8-6.4); PLATELET COUNT 262 K/uL (156-360); RBC DIS.WIDTH-CV 11.9 % (11.8-14.6); RBC DIS.WIDTH-SD 41.4 % (39-53); RED BLOOD COUNT 4.07 M/uL (4.00-5.50); WHITE BLOOD COUNT 4.8 K/uL (4.1-10.2)
[2017-09-20 06:03] LABS: CHLORIDE 106 MEQ/L (99-109); CREATININE 0.3 MG/DL (0.6-1.3); GFR ESTIMATE (CALCULATED) > 59 mL/min/ (58.99-99999); GLUCOSE 119 mg/dL (70-99); POTASSIUM 3.9 MEQ/L (3.7-5.4); SODIUM 139 MEQ/L (136-147); UREA NITROGEN (BUN) 5 mg/dL (9-23)
[2017-09-20 07:44] VITALS: BP 124/86
[2017-09-20 12:10] VITALS: BP 120/78
[2017-09-20 23:39] VITALS: BP 137/86
[2017-09-21 07:17] VITALS: BP 136/90
[2017-09-21] MEDS ORDERED: DIFLUCAN 440 MG/1 ML GT (11:41)
[2017-09-21] MEDS ORDERED: AMOX TR-K400 MG/5 M GT (11:41)
[2017-09-21] MEDS ORDERED: Zeasorb Antifungal T TP (11:41)
[2017-09-21 15:57] VITALS: BP 131/84
== END 2017-09-21 19:13 | disposition home or self-care (01) | DRG 178 ==
LOC: EME → EDBD 02:50 → EME 02:50 → EDOF 04:18 → 5SOUTH 04:18 → ENRESERV 04:22 → 5SOUTH 05:52
PROVIDERS: Emergency Medicine; Hospitalist; Internal Medicine
DX: J69.0 Pneumonitis due to inhalation of food and vomit (principal); E87.1 Hypo-osmolality and hyponatremia; L03.311 Cellulitis of abdominal wall; I67.5 Moyamoya disease; R13.10 Dysphagia, unspecified; J20.9 Acute bronchitis, unspecified; F79 Unspecified intellectual disabilities; R47.02 Dysphasia; Z74.01 Bed confinement status; Z66 Do not resuscitate; E86.0 Dehydration; Z93.4 Other artificial openings of gastrointestinal tract status; Z86.73 Personal history of transient ischemic attack (TIA), and cerebral infarction without residual deficits; G40.909 Epilepsy, unspecified, not intractable, without status epilepticus; I10 Essential (primary) hypertension; J45.909 Unspecified asthma, uncomplicated; M41.9 Scoliosis, unspecified; G80.9 Cerebral palsy, unspecified; I73.00 Raynaud's syndrome without gangrene
CPT/HCPCS: 71045; 74018; 80048; 80053; 81003; 83605; 83690; 85025; 85027; 87040; 87086; 87502; 94640; 99281; 99285; J1650; J2543; J3370; J7030; J7050; J7512

== ENCOUNTER 2017-10-03 07:41 | Emergency (ER) | payer OTHER ==
[~2017-10-03] VITALS: Ht 144.8 cm; Wt 51.4 kg
[~2017-10-03 07:41] MED LIST changes: +DIFLUCAN 440 MG/1 ML GT; +Zeasorb Antifungal T TP
[2017-10-03 09:53] VITALS: BP 134/89
== END 2017-10-03 09:55 | disposition home or self-care (01) ==
LOC: EME 07:41
PROC: 0DH63UZ Insertion of Feeding Device into Stomach, Percutaneous Approach (ICD-10-PCS; principal; 2017-10-03)
DX: T85.528A Displacement of other gastrointestinal prosthetic devices, implants and grafts, initial encounter (principal); Z46.59 Encounter for fitting and adjustment of other gastrointestinal appliance and device; I10 Essential (primary) hypertension; K21.9 Gastro-esophageal reflux disease without esophagitis; M41.9 Scoliosis, unspecified; F79 Unspecified intellectual disabilities; Z79.52 Long term (current) use of systemic steroids; Z98.890 Other specified postprocedural states; Z87.01 Personal history of pneumonia (recurrent); Z86.79 Personal history of other diseases of the circulatory system; Z88.2 Allergy status to sulfonamides; Z88.8 Allergy status to other drugs, medicaments and biological substances
CPT/HCPCS: 71045; 74018; 99281; 99284

== ENCOUNTER 2017-10-03 14:41 | Emergency (ER) | payer OTHER ==
[~2017-10-03] VITALS: Ht 144.8 cm; Wt 51.4 kg
[2017-10-03 20:19] VITALS: BP 134/76
== END 2017-10-03 20:23 | disposition home or self-care (01) ==
LOC: EME 14:41
PROC: 0D20XUZ Change Feeding Device in Upper Intestinal Tract, External Approach (ICD-10-PCS; principal; 2017-10-03)
DX: T85.528A Displacement of other gastrointestinal prosthetic devices, implants and grafts, initial encounter (principal); Z46.59 Encounter for fitting and adjustment of other gastrointestinal appliance and device; Z88.2 Allergy status to sulfonamides; M41.9 Scoliosis, unspecified; K21.9 Gastro-esophageal reflux disease without esophagitis; I10 Essential (primary) hypertension; G82.50 Quadriplegia, unspecified; I73.00 Raynaud's syndrome without gangrene; F79 Unspecified intellectual disabilities; Z87.01 Personal history of pneumonia (recurrent); R56.9 Unspecified convulsions; I67.5 Moyamoya disease; Z88.1 Allergy status to other antibiotic agents
CPT/HCPCS: 99281; 99284; C1769

== ENCOUNTER → 2017-12-23 | Outpatient (CLI) | payer OTHER ==
[~2017-12-23] MED LIST changes: +ZITHROMAX500 MG PO
== END | disposition home or self-care (01) ==
LOC: RAD 13:51 → EDSTATUS 14:00 → RAD 14:30
PROC: 0DH87UZ Insertion of Feeding Device into Small Intestine, Via Natural or Artificial Opening (ICD-10-PCS; principal; 2017-12-23)
DX: K94.20 Gastrostomy complication, unspecified (principal)
CPT/HCPCS: C1769

== ENCOUNTER 2017-12-24 10:16 | Emergency (ER) | payer OTHER ==
[~2017-12-24] VITALS: Ht 137.2 cm; Wt 50.8 kg
[2017-12-24 12:41] VITALS: BP 128/71
== END 2017-12-24 12:50 | disposition home or self-care (01) ==
LOC: EME 10:16
DX: R11.10 Vomiting, unspecified (principal); G82.50 Quadriplegia, unspecified; I67.5 Moyamoya disease; F79 Unspecified intellectual disabilities; I10 Essential (primary) hypertension; K21.9 Gastro-esophageal reflux disease without esophagitis; R56.9 Unspecified convulsions; Z93.1 Gastrostomy status; Z88.1 Allergy status to other antibiotic agents; Z88.2 Allergy status to sulfonamides
CPT/HCPCS: 71045; 99281; 99283

== ENCOUNTER 2017-12-25 10:05 | Emergency (ER) | payer OTHER ==
[~2017-12-25] VITALS: Ht 162.6 cm; Wt 51.0 kg
[2017-12-25 10:55] LABS: BASOPHIL (%) 0.5 % (0-1); EOSINOPHIL (%) 1.1 % (0-5); EOSINOPHIL COUNT 0.1 K/uL (0-0.3); HEMOGLOBIN 15.1 G/DL (12.5-16.6); IMMATURE GRANULOCYTE (%) 0.1 % (0.0-0.7); LYMPHOCYTE (%) 10.5 % (15-42); LYMPHOCYTE COUNT 0.9 K/uL (1.0-2.8); MCH 31.3 PG (29.0-34.0); MCHC 35.1 G/DL (30.0-36.0); MONOCYTE (%) 6.2 % (3-12); MONOCYTE COUNT 0.5 K/uL (0-0.8); NEUTROPHIL (%) 81.6 % (45-76); NEUTROPHIL COUNT 6.7 K/uL (1.8-6.4); PLATELET COUNT 247 K/uL (156-360); RBC DIS.WIDTH-CV 13.6 % (11.8-14.6); RBC DIS.WIDTH-SD 44.1 % (39-53); RED BLOOD COUNT 4.83 M/uL (4.00-5.50); WHITE BLOOD COUNT 8.3 K/uL (4.1-10.2)
[2017-12-25 11:35] LABS: ALBUMIN 4.1 g/dL (3.2-4.8); CHLORIDE 101 mEq/L (99-109); POTASSIUM 3.9 mEq/L (3.7-5.4); SODIUM 134 mEq/L (136-147)
[2017-12-25 11:38] LABS: GLUCOSE 110 mg/dL (70-99); TOTAL PROTEIN 7.3 g/dL (6.4-8.3)
[2017-12-25 11:40] LABS: TOTAL BILIRUBIN 0.4 mg/dL (0.0-1.0)
[2017-12-25 11:41] LABS: ALKALINE PHOSPHATASE 144 IU/L (3-129); CREATININE 0.5 mg/dL (0.6-1.3); GFR ESTIMATE (CALCULATED) > 59 mL/min/ (58.99-99999)
[2017-12-25 11:43] LABS: AST (GOT) 14 IU/L (2-34); DIRECT BILIRUBIN 0.2 mg/dL (0.0-0.3); UREA NITROGEN (BUN) 8 mg/dL (9-23)
[2017-12-25 11:44] LABS: ALT (GPT) 35 IU/L (3-49)
[2017-12-25 11:45] LABS: LIPASE 33 U/L (1.0-51.0)
[2017-12-25 14:24] VITALS: BP 128/89
== END 2017-12-25 14:26 | disposition home or self-care (01) ==
LOC: EME 10:05
PROVIDERS: Emergency Medicine
DX: Z93.1 Gastrostomy status (principal); F79 Unspecified intellectual disabilities; G82.50 Quadriplegia, unspecified; I10 Essential (primary) hypertension; K21.9 Gastro-esophageal reflux disease without esophagitis; Z86.69 Personal history of other diseases of the nervous system and sense organs; Z88.2 Allergy status to sulfonamides; Z88.1 Allergy status to other antibiotic agents
CPT/HCPCS: 74018; 74177; 80048; 80076; 83690; 85025; 99281; 99285